=== PATIENT | female | born 1950 | race Caucasian/White ===

== ENCOUNTER 2020-09-29 17:53 | Outpatient (REF) | payer MEDICARE, SELFPAY ==
--- NOTE | ~2020-09-29 | MR_ITS ---
EXAMINATION: MR LUMBAR SPINE WITHOUT CONTRAST CLINICAL INFORMATION: Lumbar radiculopathy. Left leg pain. Chronic low back pain. COMPARISON: X-ray from 04/02/2019 TECHNIQUE: MRI of the lumbar spine was obtained using routine sequences without contrast. FINDINGS: VERTEBRAL BODIES AND PARASPINAL STRUCTURES: There is a rightward curvature of the spine centered at the L1-L2 level and a moderate leftward lumbar curvature at L3-L4. Exuberant left lateral endplate edema and moderate disc space narrowing evident at the L1-L2 level. There are no compression fractures. There is moderate disc space narrowing with a mild retrosubluxation at the L2-L3 level. Mild anterior subluxations evident at the L4-L5 and L5-S1 levels. The paraspinal soft tissues appear normal. The imaged bony pelvis is unremarkable. CONUS MEDULLARIS AND CAUDA EQUINA: Normal, terminating at the level of L1. No lower cord signal abnormality is seen. The cauda equina nerve roots are normal. SPINAL LEVELS: L1-L2: Moderate loss of disc height with significant endplate edema lateralized to the left side. Diffuse disc bulge and endplate spurring without central canal stenosis. Moderate left foraminal narrowing. L2-L3: Retrosubluxation and significant loss of disc height with a diffuse disc bulge and mild facet arthropathy. No central canal stenosis. Mild foraminal encroachment. L3-L4: Moderate hypertrophic facet arthropathy and mild disc bulge with a shallow left lateral annular fissure. Moderate right foraminal encroachment and mild left foraminal narrowing. No central canal stenosis. L4-L5: Diffuse disc bulge and moderate facet arthropathy with mild anterior subluxation. Bulging disc and osseous spurring with mild left and moderate right foraminal encroachment. L5-S1: Anterior subluxation and unroofing of the disc with mioyvsve-dn-mprcap facet arthropathy. No central canal stenosis or foraminal narrowing. MR/MR lumbar spine wo con IMPRESSION: Moderate sigmoidal-shaped curvature of the lumbar spine. Significant endplate edema lateralized to the left side at the L1-L2 level where there is moderate left foraminal narrowing due to spondylosis. No focal disc protrusions. [id number] degenerative changes, as described, with subluxations. Significant loss of disc height with a generalized disc bulge at the L2-L3 level. Moderate right foraminal narrowing at L3-L4 and at L4-L5 with exuberant facet arthropathy.
== END 2020-09-29 17:54 | disposition home or self-care (01) ==
LOC: HO.MRI 17:53
PROVIDERS: Visit Provider Internal Medicine
DX: M54.16 Radiculopathy, lumbar region (principal)
CPT/HCPCS: 72148

== ENCOUNTER 2020-10-31 21:18 | Emergency (ER) | payer MEDICARE, SELFPAY ==
--- NOTE | ~2020-10-31 | XR_ITS ---
EXAMINATION: XR WRIST, LEFT CLINICAL INFORMATION: Wrist pain COMPARISON: None TECHNIQUE: PA, lateral, and oblique views of the left wrist. FINDINGS: Soft tissue swelling about the wrist. Acute deformity with mild impaction of the metaphysis with the fracture line extending to the articular surface without incongruence. Distal ulnar and carpal bones appear intact. Degeneration the first carpometacarpal articulation. No additional findings. XR/XR wrist LT 2V IMPRESSION: Acute intra-articular fracture with mild impaction of the distal radius.
[2020-10-31 21:38] VITALS: BP 188/103; PULSE 96; RESP 18; TEMP 37.2; O2SAT 98; BMI 26.2
[2020-11-01 01:14] VITALS: BP 186/94; PULSE 78; RESP 16; TEMP 36.3; O2SAT 97
--- NOTE | 2020-11-01 01:19 | ED_ITS ---
HPI - Extremity Injury (Upper) General Chief Complaint: Fall Stated Complaint: FAll @ 8:00pm Time Seen by Provider: 11/01/20 01:18 Source: patient Mode of arrival: ambulatory History of Present Illness HPI narrative: 70-year-old female who suffered a mechanical fall and caught herself her left hand and developed pain and swelling at the wrist area shortly thereafter and denies any numbness/tingling into the fingers. Related Data Allergies Allergy/AdvReac Type Severity Reaction Status Date / Time acetaminophen [From PERCOCET] Allergy Intermediate HALLUCINATI Unverified 02/26/20 14:49 ONS oxycodone [From PERCOCET] Allergy Intermediate HALLUCINATI Unverified 02/26/20 14:49 ONS Sulfa (Sulfonamide Allergy Unknown leg px rash Verified 04/01/14 00:00 Antibiotics) Review of Systems Review of Systems: Pertinent positives and negatives as stated in HPI and 10 point review of systems is otherwise negative. [facility] Past Medical History Source: nursing notes reviewed Medical History Arthritis Sciatic leg pain Social History Social History Alcohol intake: never Smoking Status: Never smoker Use of substances other than those prescribed or required for medical reasons: No Advance Directives: No Advance Directives Information Provided: No Physical Exam Vital Signs: Vital Signs: Last Vital Signs Temp 97.4 F 11/01/20 01:14 Pulse 78 11/01/20 01:14 Resp 16 11/01/20 01:14 BP 186/94 H 11/01/20 01:14 Pulse Ox 97 11/01/20 01:14 Body Mass Index 26.2 VITAL SIGNS: Reviewed. GENERAL: Well developed, well nourished, in no acute distress. HEAD: Normocephalic/atraumatic, EYES: PERRLA, EOMI EARS: Ext canals without abnormality NOSE: Nares patent bilateral OROPHARYNX: no oral lesions noted, posterior pharynx clear NECK: Supple, no adenopathy LUNGS: Normal breath sounds. No adventitious sounds or accessory muscle use. SpO2<97> CARDIOVASCULAR: Regular rate and rhythm without noted murmurs ABDOMEN: Soft, non-tender, non-distended with bowel sounds. LUE: Mild deformity noted at the left wrist, palpable radial/ulnar pulses, capillary refill less than 3 seconds, sensation intact Course Course Course Narrative: 70-year-old female with history and clinical presentation consistent with mechanical fall resulting in suspected fracture which was supported by x-ray showing distal intra-articular fracture with mild impaction the distal radius. Patient will receive combination analgesics and be placed in a sugar-tong splint with instructions to follow-up with orthopedics Sunday. Discharge Plan Discharge Clinical Impression: Distal radius fracture, left Patient Disposition: Home, Self-Care Instructions: Arm Fracture in Adults (ED), Splint Care (ED) Additional Instructions: 1. Tylenol 1000 mg, orally, every 6 hours as needed for pain control. Do not exceed 4000 mg within 24 hours. 2. Ibuprofen 400 mg, orally with milk or food, every 6 hours as needed for pain control. 3. Apply ice for 10-15 minutes, 3 to 4 times a day. Keep extremity elevated when possible. 4. Please follow-up with orthopedic service, the referrals provided below. Call the office 1st thing Sunday. Return to the emergency room for any acute worsening of your symptoms. Referrals: Trent Littlejohn MD, DO [Primary Care Provider] - 2 days (Re-evaluation for left radius fracture)
[2020-11-01] MEDS: Ibuprofen 400 MG TABLET PO (01:24)
[2020-11-01] MEDS: Acetaminophen 325 MG TABLET 975 MG PO (01:24)
--- NOTE | 2020-11-01 01:48 | PC.NURSE ---
SUGAR TONG SPLINT APPLIED TO PATIENTS L ARM.
== END 2020-11-01 02:17 | disposition home or self-care (01) ==
PROVIDERS: Emergency Provider Student in an Organized Health Care Education/Training Program; PCP Internal Medicine
DX: S52.572A Other intraarticular fracture of lower end of left radius, initial encounter for closed fracture (principal); W01.0XXA Fall on same level from slipping, tripping and stumbling without subsequent striking against object, initial encounter; M54.32 Sciatica, left side; Y93.9 Activity, unspecified; Y92.039 Unspecified place in apartment as the place of occurrence of the external cause; Y99.9 Unspecified external cause status
CPT/HCPCS: 29125; 73100; 99283; 99284

== ENCOUNTER 2020-11-02 09:54 | Outpatient (REF) | payer MEDICARE, SELFPAY ==
--- NOTE | ~2020-11-02 | XR_ITS ---
EXAMINATION: XR WRIST, LEFT CLINICAL INFORMATION: Pain. COMPARISON: None TECHNIQUE: PA, lateral, and oblique views of the left wrist. FINDINGS: There is loss of 1st carpometacarpal joint space with mild periarticular spurring. There is subtle lucency traversing the distal radial articular surface with small bony protuberance dorsally suspicious for a fracture. There is mild soft tissue swelling and likely joint effusion. XR/XR wrist LT min 3V IMPRESSION: Findings most suspicious of distal radial fracture with intra-articular extension and soft tissue swelling. There are arthritic changes 1st carpometacarpal joint space.
== END 2020-11-02 09:55 | disposition home or self-care (01) ==
LOC: HO.HOSX 09:54
PROVIDERS: Visit Provider Physician Assistant
DX: S52.502A Unspecified fracture of the lower end of left radius, initial encounter for closed fracture (principal)
CPT/HCPCS: 25600; 29085; 73110; 99202

== ENCOUNTER 2020-11-09 07:20 | Outpatient (REF) | payer MEDICARE, SELFPAY ==
--- NOTE | ~2020-11-09 | XR_ITS ---
EXAMINATION: XR WRIST, LEFT CLINICAL INFORMATION: Fracture left wrist. Follow-up COMPARISON: Left wrist 11/02/2020 TECHNIQUE: PA, lateral, and oblique views of the left wrist. FINDINGS: Again visualized is a intra-articular fracture left distal radius and mild step-off of the volar aspect of the distal radial cortex. Visualized ulna and the carpal bones is normal. There is mild loss of radial carpal joint space. There is mild soft tissue swelling. XR/XR wrist LT min 3V IMPRESSION: Stable distal radial fracture with intra-articular extension. No change in the soft tissue swelling.
== END 2020-11-09 07:21 | disposition home or self-care (01) ==
LOC: HO.HOSX 07:20
PROVIDERS: Visit Provider Physician Assistant
DX: S52.502A Unspecified fracture of the lower end of left radius, initial encounter for closed fracture (principal); X58.XXXA Exposure to other specified factors, initial encounter; Y93.9 Activity, unspecified; Y92.9 Unspecified place or not applicable; Y99.9 Unspecified external cause status
CPT/HCPCS: 29075; 73110; 99212

== ENCOUNTER 2020-12-07 15:21 | Outpatient (REF) | payer MEDICARE, SELFPAY ==
--- NOTE | ~2020-12-07 | XR_ITS ---
EXAMINATION: XR WRIST, LEFT CLINICAL INFORMATION: Fracture follow-up COMPARISON: 11/09/2020 TECHNIQUE: PA, lateral, and oblique views of the left wrist. FINDINGS: Alignment of the distal radius fracture appears similar with minimal offset along the articular surface. There is some sclerosis/callus formation along the fracture lines. Severe 1st CMC joint osteoarthritis. XR/XR wrist LT min 3V IMPRESSION: Stable alignment with incomplete healing of the distal radius fracture.
== END 2020-12-07 15:22 | disposition home or self-care (01) ==
LOC: HO.HOSX 15:21
PROVIDERS: Visit Provider Physician Assistant
DX: S52.502A Unspecified fracture of the lower end of left radius, initial encounter for closed fracture (principal)
CPT/HCPCS: 73110; 99212

== ENCOUNTER 2020-12-28 11:40 | Outpatient (REF) | payer MEDICARE, SELFPAY ==
--- NOTE | ~2020-12-28 | XR_ITS ---
EXAMINATION: XR WRIST, LEFT CLINICAL INFORMATION: Left wrist fracture. COMPARISON: 12/07/2020 and studies dating back to 10/31/2020. TECHNIQUE: PA, lateral, and oblique views of the left wrist. FINDINGS: There is continued healing of distal radial intra-articular comminuted fracture with fracture line not as well seen and with sclerosis being present with what appears be some degree of bony union. There is neutral angulation of the radiocarpal joint. There is significant degenerative change of the 1st carpometacarpal joint. There is a bony density seen at the base of the 1st metacarpal and adjacent to the trapezium which may be related to previous trauma. XR/XR wrist LT min 3V IMPRESSION: No significant change in alignment of the left wrist. Healing intra-articular fracture distal left radius with what appears to be some degree of bony union.
== END 2020-12-28 11:41 | disposition home or self-care (01) ==
LOC: HO.HOSX 11:40
PROVIDERS: Visit Provider Physician Assistant
DX: S52.502D Unspecified fracture of the lower end of left radius, subsequent encounter for closed fracture with routine healing (principal)
CPT/HCPCS: 73110; 99212

== ENCOUNTER 2021-08-15 07:41 | Day surgery (SDC) | payer MEDICARE, SELFPAY ==
[2021-08-08 16:18] VITALS: BMI 25.8
--- NOTE | 2021-08-12 14:27 | MHC.SHP ---
Pre-Procedural Eval Section A Date of Service: 08/12/21 The patient is an INPATIENT: No Changes since office visit: No Cold of Flu in the past 2 weeks, No New Medical Problems, No Changes in Medication and No Patient answered all questions The History & Physical has been completed within 30 days and I have reviewed it.: Yes Section B Chief Complaint: cataract right eye Allergies: Allergies Allergy/AdvReac Type Severity Reaction Status Date / Time Sulfa (Sulfonamide Allergy Unknown leg rash Verified 08/08/21 16:16 Antibiotics) Plan Diagnosis/Plan: Unchanged I have reviewed the history and physical and performed a pertinent physical examination on my patient. No changes have occurred unless specified.
[2021-08-15 08:34] VITALS: BP 164/85; PULSE 84; RESP 16; TEMP 36.1; O2SAT 97
[2021-08-15] MEDS: Lactated Ringers 500 ML 50 ML IVCONT (08:40)
[2021-08-15] MEDS: Tetracaine HCl/PF 0.5% Oph Sol 4 ML DROPS 1 DROP EYE-RIGHT (08:41)
[2021-08-15] MEDS: Tropicamide 1 % Ophth Sol 3 ML BTL 1 DROP EYE-RIGHT ×3 (08:43→08:51)
[2021-08-15] MEDS: Phenylephrine HCL 2.5% Oph SoL 2 ML BOTTLE 1 DROP EYE-RIGHT ×3 (08:45→08:53)
--- NOTE | 2021-08-15 09:05 | HO.ANESPROP2 ---
HPI - Anesthesia Eval Consult details Narrative: Right eye Cataract PMFSH Active Problems Active Problems: All Active Problems (Updated 08/08/21 @ 16:27 by Taylor Tellez RN) Wrist pain (Acute) Fracture of distal end of left radius (Acute) Past Medical History Medical History (Updated 08/08/21 @ 16:27 by Taylor Tellez, RN) Arthritis Back pain Degenerative disc disease, lumbar HTN (hypertension) Mild acid reflux Sciatic leg pain Family History Family history of problems with anesthesia: No Surgical History Surgical History (Updated 08/08/21 @ 16:16 by Taylor Tellez RN) History of thyroglossal duct cyst removal Hx of colonoscopy History of Problems with Anesthesia: No Social History Social History (Updated 12/28/20 @ 14:37 by Ant Ozuna) Are you a primary residential caregiver to a significant other at home: No Do you presently have visiting nurse or other home services: No Alcohol intake: never Patient Tobacco Use Status: Never used Tobacco Second Hand Smoke Exposure: No Use of substances other than those prescribed or required for medical reasons: No Have you been hit, kicked, punched, or otherwise hurt by someone within the past year? If so, by whom?: No Are you DNR?: No Advance Directives: No Advance Directives Information Provided: No Advance Directives on File: No Recently lost weight without trying: No Eating poorly because of decreased appetite: No Nutrition Risks: No Nutritional Risk Current occupational status: retired Current occupation: right handed. Meds Allergies Allergy/AdvReac Type Severity Reaction Status Date / Time Sulfa (Sulfonamide Allergy Unknown leg rash Verified 08/08/21 16:16 Antibiotics) Active Medications: Current Medications Lactated Ringer's (Lr) 500 mls @ 50 mls/hr IVCONT .Q10H BRIAN Last Admin: 08/15/21 08:40 Dose: 50 mls/hr Documented by: Povidone Iodine (Povidone Iodine 5 % Ophth Soln 30 Ml Bottle) 1 appl EYE-RIGHT PREOP PRN PRN Reason: Pre-Op Surgical Implant Prophy Home Medications Medication Instructions Recorded Confirmed Last Taken Type amlodipine 5 mg tablet 5 mg PO DAILY 11/02/20 08/08/21 08/15/21 History cholecalciferol (vitamin D3) 25 25 mcg PO DAILY 08/08/21 08/08/21 Unknown History mcg (1,000 unit) capsule (Vitamin D3) Exam Exam Date and Time: August 15, 2021 09 Height,Weight and Vital Signs: Height 4 ft 11.5 in Weight 58.967 kg Last Vital Signs Temp 96.9 F 08/15/21 08:34 Pulse 84 08/15/21 08:34 Resp 16 08/15/21 08:34 BP 164/85 H 08/15/21 08:34 Pulse Ox 97 08/15/21 08:34 Airway Mallampati Class: II TM Dist: >3cm Neck ROM: Full Loose/Missing/Broken Teeth: No Heart: rrr+s1s2 Lungs: cta b/l Assessment and Plan Assessment Anesthesia Assessment: Anesthesia Plan Discussed and Chart Reviewed Final Anesthetic Review Family History of Problems with Anesthesia: No History of Problems with Anesthesia: No NPO: Yes ASA Class: II Final Preanesthetic Review: No Changes in Pt Med Stat, Meds/Allgs Chart Reviewed, Consent Obtained/Reviewed and Anes Risks/Benef Reviewed Patient Risk: Intermediate Procedure Risk: Low Assessment/Block/Sedation in SS: Assess/Block/Sedation-SS Anesthetic Plan Anesthetic Plan: MAC: and Agree w/ Assess. and Plan Disposition: Standard PACU
--- NOTE | 2021-08-15 09:49 | HO.PNOPHT ---
Ophthalmology Procedure Procedure Date of Service: 08/15/21 Ophthalmology Viscoelastic: Yumiko Westont Dual Pack Pro Ophthalmology Lenses: TECIGNACIO [id number] (24) Procedure Notes: PREOPERATIVE DIAGNOSIS: Decreased visual acuity right eye secondary to cataract POSTOPERATIVE DIAGNOSIS: Same PROCEDURE: Right cataract extraction with intraocular lens insertion SURGEON: Santhosh Mann M.D. ANESTHESIA: Topical/MAC ESTIMATED BLOOD LOSS: None COMPLICATIONS: None After obtaining informed consent, the patient was brought to the operating room suite and placed in the supine position. After adequate sedation per anesthesia, topical drops of Tetracaine were given to the right eye. The eye was then prepped and draped in the usual sterile fashion. The operating room microscope was then positioned over the operative eye and a lid speculum placed. A paracentesis was created. Viscoelastic was then instilled into the anterior chamber. A three plane incision was then created temporally, utilizing a 2.85 mm keratome. Capsulotomy forceps were then utilized to create a circular tear capsulotomy. Hydrodissection and hydrodelineation were carried out until adequate mobilization of the nucleus occurred. Phacoemulsification was then utilized to remove the dense central nucleus followed by removal of the cortical material utilizing the automated aspiration irrigation unit. Viscoelastic was instilled into the posterior capsular bag followed by placement of a posterior chamber intraocular lens without difficulty. The residual Viscoelastic was then removed utilizing the automated IA machine. The wound was checked and found to be watertight. The patient tolerated the procedure well and the lid speculum was removed. Intracameral injection of Vigamox 0.1 mL followed by a subtenon injection of Kenalog-40 0.2 mL were administered. The patient will be seen in the a.m.
[2021-08-15 10:21] VITALS: BP 128/76; PULSE 84; RESP 18; TEMP 36.9; O2SAT 96
== END 2021-08-15 10:25 | disposition home or self-care (01) ==
PROVIDERS: PCP Internal Medicine; Visit Provider Ophthalmology
PROC: (CPT 66985; principal; 2021-08-15 09:30)
DX: H25.11 Age-related nuclear cataract, right eye (principal); H54.7 Unspecified visual loss; Z83.511 Family history of glaucoma; I10 Essential (primary) hypertension; Z79.899 Other long term (current) drug therapy; Z88.2 Allergy status to sulfonamides; Z88.8 Allergy status to other drugs, medicaments and biological substances
CPT/HCPCS: 66984; J2250; J3010; J3300; V2632

== ENCOUNTER 2021-08-29 08:20 | Day surgery (SDC) | payer MEDICARE, SELFPAY ==
[2021-08-08 16:27] VITALS: BMI 25.8
--- NOTE | 2021-08-26 09:34 | HO.ANESPROP2 ---
Documented by User: Joselin Awad NP 08/26/21 09:46 HPI - Anesthesia Eval Consult details Narrative: 71yo F for Left Cataract Extraction IOL Insertion PCP cleared Right eye 08/15/21 with MAC: Fent 50, Midaz 1 PMFSH Active Problems Active Problems: All Active Problems (Updated 08/08/21 @ 16:27 by Taylor Tellez, RN) Wrist pain (Acute) Fracture of distal end of left radius (Acute) Past Medical History Medical History (Updated 08/08/21 @ 16:27 by Taylor Tellez, RN) Arthritis Back pain Degenerative disc disease, lumbar HTN (hypertension) Mild acid reflux Sciatic leg pain Family History Family history of problems with anesthesia: No Surgical History Surgical History (Updated 08/08/21 @ 16:16 by Taylor Tellez, DELFINO) History of thyroglossal duct cyst removal Hx of colonoscopy History of Problems with Anesthesia: No Social History Social History (Updated 12/28/20 @ 14:37 by Ant Ozuna) Are you a primary career and transition teacher to a significant other at home: No Do you presently have visiting nurse or other home services: No Alcohol intake: never Patient Tobacco Use Status: Never used Tobacco Second Hand Smoke Exposure: No Use of substances other than those prescribed or required for medical reasons: No Have you been hit, kicked, punched, or otherwise hurt by someone within the past year? If so, by whom?: No Are you DNR?: No Advance Directives: No Advance Directives Information Provided: No Advance Directives on File: No Recently lost weight without trying: No Eating poorly because of decreased appetite: No Nutrition Risks: No Nutritional Risk Patient : No Current occupational status: retired Current occupation: right handed. Meds Allergies Allergy/AdvReac Type Severity Reaction Status Date / Time Sulfa (Sulfonamide Allergy Unknown leg rash Verified 08/08/21 16:16 Antibiotics) Home Medications Medication Instructions Recorded Confirmed Last Taken Type amlodipine 5 mg tablet 5 mg PO DAILY 11/02/20 08/08/21 08/15/21 History cholecalciferol (vitamin D3) 25 25 mcg PO DAILY 08/08/21 08/08/21 Unknown History mcg (1,000 unit) capsule (Vitamin D3) Exam Exam Date and Time: August 26, 2021 0934 Height,Weight and Vital Signs: Height 4 ft 11.5 in Weight 58.967 kg Assessment and Plan Assessment Anesthesia Assessment: Chart Reviewed Final Anesthetic Review Family History of Problems with Anesthesia: No History of Problems with Anesthesia: No Documented by User: Graham Ritter MD 08/29/21 08:54 [facility] Past Medical History Medical History (Updated 08/08/21 @ 16:27 by Taylor Tellez, RN) Arthritis Back pain Degenerative disc disease, lumbar HTN (hypertension) Mild acid reflux Sciatic leg pain Surgical History Surgical History (Updated 08/08/21 @ 16:16 by Taylor Tellez, RN) History of thyroglossal duct cyst removal Hx of colonoscopy Social History Social History (Updated 12/28/20 @ 14:37 by Ant Ozuna) Are you a primary career and transition teacher to a significant other at home: No Do you presently have visiting nurse or other home services: No Alcohol intake: never Patient Tobacco Use Status: Never used Tobacco Second Hand Smoke Exposure: No Use of substances other than those prescribed or required for medical reasons: No Have you been hit, kicked, punched, or otherwise hurt by someone within the past year? If so, by whom?: No Are you DNR?: No Advance Directives: No Advance Directives Information Provided: No Advance Directives on File: No Recently lost weight without trying: No Eating poorly because of decreased appetite: No Nutrition Risks: No Nutritional Risk Patient : No Current occupational status: retired Current occupation: right handed. Meds Allergies Allergy/AdvReac Type Severity Reaction Status Date / Time Sulfa (Sulfonamide Allergy Unknown leg rash Verified 08/08/21 16:16 Antibiotics) Home Medications Medication Instructions Recorded Confirmed Last Taken Type amlodipine 5 mg tablet 5 mg PO DAILY 11/02/20 08/08/21 08/15/21 History cholecalciferol (vitamin D3) 25 25 mcg PO DAILY 08/08/21 08/08/21 Unknown History mcg (1,000 unit) capsule (Vitamin D3) Exam Airway Mallampati Class: II TM Dist: >3cm Neck ROM: Full Loose/Missing/Broken Teeth: No Heart: rrr+s1s2 Lungs: cta b/l Assessment and Plan Final Anesthetic Review NPO: Yes ASA Class: II Final Preanesthetic Review: No Changes in Pt Med Stat, Meds/Allgs Chart Reviewed, Consent Obtained/Reviewed and Anes Risks/Benef Reviewed Patient Risk: Low Procedure Risk: Low Assessment/Block/Sedation in SS: Assess/Block/Sedation-SS Anesthetic Plan Anesthetic Plan: MAC: and Agree w/ Assess. and Plan Disposition: Standard PACU
--- NOTE | 2021-08-26 13:48 | MHC.SHP ---
Pre-Procedural Eval Section A Date of Service: 08/26/21 The patient is an INPATIENT: No Changes since office visit: No Cold of Flu in the past 2 weeks, No New Medical Problems, No Changes in Medication and No Patient answered all questions The History & Physical has been completed within 30 days and I have reviewed it.: Yes Section B Chief Complaint: cataract left eye Allergies: Allergies Allergy/AdvReac Type Severity Reaction Status Date / Time Sulfa (Sulfonamide Allergy Unknown leg rash Verified 08/08/21 16:16 Antibiotics) Plan Diagnosis/Plan: Unchanged I have reviewed the history and physical and performed a pertinent physical examination on my patient. No changes have occurred unless specified.
[2021-08-29 09:32] VITALS: BP 178/87; PULSE 84; RESP 16; TEMP 35.9; O2SAT 98
[2021-08-29] MEDS: Tetracaine HCl/PF 0.5% Oph Sol 4 ML DROPS 1 DROP EYE-LEFT (09:38)
[2021-08-29] MEDS: Tropicamide 1 % Ophth Sol 3 ML BTL 1 DROP EYE-LEFT ×3 (09:40→09:49)
[2021-08-29] MEDS: Phenylephrine HCL 2.5% Oph SoL 2 ML BOTTLE 1 DROP EYE-LEFT ×3 (09:44→09:51)
[2021-08-29] MEDS: Lactated Ringers 500 ML 50 ML IV (09:46)
--- NOTE | 2021-08-29 10:29 | HO.PNOPHT ---
Ophthalmology Procedure Procedure Date of Service: 08/29/21 Ophthalmology Viscoelastic: [employer] Duet Dual Pack Pro Ophthalmology Lenses: TECIGNACIO [id number] (23) Procedure Notes: PREOPERATIVE DIAGNOSIS: Decreased visual acuity left eye secondary to cataract POSTOPERATIVE DIAGNOSIS: Same PROCEDURE: Left cataract extraction with intraocular lens insertion SURGEON: Santhosh Mann M.D. ANESTHESIA: Topical/MAC ESTIMATED BLOOD LOSS: None COMPLICATIONS: None After obtaining informed consent, the patient was brought to the operation room suite and placed in the supine position. After adequate sedation per anesthesia, topical drops of Tetracaine were given to the left eye. The eye was then prepped and draped in the usual sterile fashion. The operating room microscope was then positioned over the operative eye and a lid speculum placed. A paracentesis was created. Viscoelastic was then instilled into the anterior chamber. A three plane incision was then created temporally, utilizing a 2.85 mm keratome. Capsulotomy forceps were then utilized to create a circular tear capsulotomy. Hydrodissection and hydrodelineation were carried out until adequate mobilization of the nucleus occurred. Phacoemulsification was then utilized to remove the dense central nucleus followed by removal of the cortical material utilizing the automated aspiration irrigation unit. Viscoat elastic was instilled into the posterior capsular bag followed by placement of a posterior chamber intraocular lens without difficulty. The residual Viscoat elastic was then removed utilizing the automated IA machine. The wound was check and found to be watertight. The patient tolerated the procedure well and the lid speculum was removed. Intracameral injection of Vigamox 0.1 mL followed by a subtenon injection of Kenalog-40 0.2 mL were administered. The patient will be seen in the a.m.
[2021-08-29 10:55] VITALS: BP 140/85; PULSE 86; RESP 18; TEMP 36.6; O2SAT 96
[2021-08-29] MEDS: Ondansetron ODT 4 MG TAB.RAPDIS TRANSLINGU (12:04)
== END 2021-08-29 11:05 | disposition home or self-care (01) ==
PROVIDERS: PCP Internal Medicine; Visit Provider Ophthalmology
PROC: (CPT 66985; principal; 2021-08-29 10:50)
DX: H25.12 Age-related nuclear cataract, left eye (principal); H54.7 Unspecified visual loss; Z83.511 Family history of glaucoma; I10 Essential (primary) hypertension; M54.16 Radiculopathy, lumbar region; Z79.899 Other long term (current) drug therapy; Z88.2 Allergy status to sulfonamides; Z88.8 Allergy status to other drugs, medicaments and biological substances
CPT/HCPCS: 66984; J2250; J3010; J3300; V2632

== ENCOUNTER 2021-10-27 11:41 | Outpatient (REF) | payer MEDICARE, SELFPAY ==
--- NOTE | ~2021-10-27 | MM_ITS ---
EXAMINATION: MM SCREENING DIGITAL BREAST TOMOSYNTHESIS, BILATERAL CLINICAL INFORMATION: Screening. Asymptomatic. The lifetime risk of breast cancer based on the Tyrer-Cuzick Model is 3%. COMPARISON: Mammography: 10/17/2018, 07/31/2016, 05/10/2015 TECHNIQUE: Digital breast tomosynthesis is performed in both the craniocaudal and mediolateral oblique views along with computer-aided detection (CAD). Synthesized 2D images are generated from the tomosynthesis. FINDINGS: The breasts are heterogeneously dense, which may obscure small masses (ACR BI-RADS breast composition Category c). There are no significant masses, abnormal calcifications, or other abnormalities. Parenchymal pattern is similar to prior exams. No developing density. No significant changes. The axilla and skin contours are unremarkable. MM/MM tomosynthesis screening BI IMPRESSION: No mammographic evidence of malignancy. ASSESSMENT: BI-RADS 1: Negative RECOMMENDATION: Routine annual mammography screening. This patient's information was entered into a reminder system with a target due date for their next mammogram.
== END 2021-10-27 11:42 | disposition home or self-care (01) ==
LOC: HO.MAMMO 11:41
PROVIDERS: PCP Internal Medicine; Visit Provider Internal Medicine
DX: Z12.31 Encounter for screening mammogram for malignant neoplasm of breast (principal)
CPT/HCPCS: 77063; 77067

== ENCOUNTER 2022-01-18 09:14 | Outpatient (REF) | payer MEDICARE, SELFPAY ==
[2022-01-18 10:14] LABS: MANUAL DIFF FLAG NO
[2022-01-18 10:44] LABS: Basophils Absolute Auto 0.1 X10*3/uL (0.0-0.2); Basophils Percent Auto 0.9 % (0-2); Eosinophils Absolute Auto 0.4 X10*3/uL (0.0-0.4); Eosinophils Percent Auto 4.6 % (0-4); Hemoglobin 13.3 g/dl (12.0-16.0); Imm Gran Abs Auto 0.01 X10*3/uL (0.00-0.03); Imm Gran Pct Auto 0.1 % (0.0-0.4); Lymphocytes Absolute Auto 3.2 X10*3/uL (1.2-4.9); Lymphocytes Percent Auto 41.9 % (20-40); Mean Corpuscular HGB Conc 32.4 g/dl (31.0-35.0); Mean Corpuscular Volume 86.3 fL (80.0-98.0); Mean Platelet Volume 8.9 fL (9.4-12.3); Monocytes Absolute Auto 0.5 X10*3/uL (0.1-1.2); Neutrophils Absolute Auto 3.5 x10*3/uL (2.0-8.3); Neutrophils Percent Auto 45.5 % (45-73); Platelet Count 329 X10*3/uL (160-400); Red Blood Count 4.75 X10*6/uL (4.20-5.50); Red Cell Distribution Width 13.6 % (11.0-16.0); White Blood Count 7.6 X10*3/uL (4.8-10.8)
[2022-01-18 11:15] LABS: Alanine Aminotransferase 15 U/L (0-31); Albumin Level 4.6 g/dL (3.5-5.0); Alkaline Phosphatase 92 U/L (39-117); Anion Gap 17 (12-20); Aspartate Amino Transferase 16 U/L (5-31); Bilirubin Total 0.5 mg/dL (0.0-1.0); Blood Urea Nitrogen 10 mg/dL (9-16); Calcium 9.4 mg/dL (8.4-10.2); Chloride 102 mmol/L (96-108); Cholesterol 254 mg/dL; Estimated Glomerular Filt Rate > 60; Glucose Fasting 94 mg/dL (60-99); HDL Cholesterol 62 mg/dL; LDL Cholesterol Calculated 161 mg/dl; Potassium 4.6 mmol/L (3.3-5.1); Sodium 141 mmol/L (135-145); Total Protein 7.7 g/dL (6.5-8.0); Triglycerides 159 mg/dL
[2022-01-18 11:20] LABS: Carbon Dioxide 27 mmol/L (22-29)
[2022-01-18 11:33] LABS: Erythrocyte Sedimentation Rate 13 MM/HR (0-20)
[2022-01-18 11:38] LABS: Thyroid Stimulating Hormone 4.53 uIU/mL (0.32-4.0)
== END 2022-01-18 09:15 | disposition home or self-care (01) ==
LOC: HO.LAB 09:14
PROVIDERS: PCP Internal Medicine; Visit Provider Internal Medicine
DX: R11.0 Nausea (principal)
CPT/HCPCS: 36415; 80053; 80061; 84443; 85025; 85652; 86140

== ENCOUNTER 2022-03-23 08:27 | Outpatient (REF) | payer MEDICARE, SELFPAY ==
[2022-03-23 10:57] LABS: MANUAL DIFF FLAG NO
[2022-03-23 11:09] LABS: Basophils Absolute Auto 0.1 X10*3/uL (0.0-0.2); Basophils Percent Auto 0.7 % (0-2); Eosinophils Absolute Auto 0.4 X10*3/uL (0.0-0.4); Eosinophils Percent Auto 4.9 % (0-4); Hematocrit 38.6 % (37.0-47.0); Hemoglobin 12.6 g/dl (12.0-16.0); Imm Gran Abs Auto 0.01 X10*3/uL (0.00-0.03); Imm Gran Pct Auto 0.1 % (0.0-0.4); Lymphocytes Absolute Auto 3.2 X10*3/uL (1.2-4.9); Lymphocytes Percent Auto 44.3 % (20-40); Mean Corpuscular HGB Conc 32.6 g/dl (31.0-35.0); Mean Corpuscular Hemoglobin 28.3 pg (27.0-33.0); Mean Corpuscular Volume 86.7 fL (80.0-98.0); Mean Platelet Volume 8.9 fL (9.4-12.3); Monocytes Absolute Auto 0.5 X10*3/uL (0.1-1.2); Monocytes Percent Auto 7.2 % (2-11); Neutrophils Absolute Auto 3.1 x10*3/uL (2.0-8.3); Neutrophils Percent Auto 42.8 % (45-73); Platelet Count 317 X10*3/uL (160-400); Red Blood Count 4.45 X10*6/uL (4.20-5.50); White Blood Count 7.1 X10*3/uL (4.8-10.8)
[2022-03-23 12:01] LABS: Thyroid Stimulating Hormone 4.24 uIU/mL (0.32-4.0)
[2022-03-23 12:04] LABS: Alanine Aminotransferase 11 U/L (0-31); Albumin Level 4.5 g/dL (3.5-5.0); Alkaline Phosphatase 87 U/L (39-117); Anion Gap 15 (12-20); Aspartate Amino Transferase 18 U/L (5-31); Bilirubin Total 0.4 mg/dL (0.0-1.0); Blood Urea Nitrogen 13 mg/dL (9-16); C Reactive Protein 0.35 mg/dL (< or = 0.50); Calcium 8.9 mg/dL (8.4-10.2); Carbon Dioxide 25 mmol/L (22-29); Chloride 103 mmol/L (96-108); Cholesterol 239 mg/dL; Estimated Glomerular Filt Rate > 60; Glucose Fasting 97 mg/dL (60-99); HDL Cholesterol 53 mg/dL; LDL Cholesterol Calculated 133 mg/dl; Sodium 139 mmol/L (135-145); Total Protein 7.4 g/dL (6.5-8.0); Triglycerides 267 mg/dL
[2022-03-23 12:07] LABS: Erythrocyte Sedimentation Rate 13 MM/HR (0-20)
== END 2022-03-23 08:28 | disposition home or self-care (01) ==
LOC: HO.HMGCLDS 08:27
PROVIDERS: PCP Internal Medicine; Visit Provider Internal Medicine
DX: R11.0 Nausea (principal); E78.00 Pure hypercholesterolemia, unspecified
CPT/HCPCS: 36415; 80053; 80061; 84443; 85025; 85652; 86140

== ENCOUNTER 2022-05-23 14:54 | Outpatient (REF) | payer MEDICARE, SELFPAY ==
--- NOTE | ~2022-05-23 | XR_ITS ---
EXAMINATION: XR CHEST CLINICAL INFORMATION: Shortness of breath COMPARISON: Chest x-ray 09/19/2012 TECHNIQUE: 2 views of the chest were obtained. FINDINGS: Minimal linear subsegmental atelectasis versus scarring in the left lower lung. The lungs are otherwise clear. No airspace consolidation, pleural effusion, or pneumothorax. The cardiomediastinal silhouette is within normal limits. No acute osseous injury. Mild multilevel degenerative disc disease in the thoracic spine. Dextroconvex curvature of the lower thoracic and upper lumbar spine. XR/XR chest 2V IMPRESSION: No acute pulmonary process.
[2022-05-23 16:35] LABS: Basophils Absolute Auto 0.1 X10*3/uL (0.0-0.2); Basophils Percent Auto 0.6 % (0-2); Eosinophils Absolute Auto 0.3 X10*3/uL (0.0-0.4); Eosinophils Percent Auto 2.5 % (0-4); Hematocrit 39.3 % (37.0-47.0); Hemoglobin 12.5 g/dl (12.0-16.0); Imm Gran Abs Auto 0.04 X10*3/uL (0.00-0.03); Imm Gran Pct Auto 0.4 % (0.0-0.4); Lymphocytes Absolute Auto 5.1 X10*3/uL (1.2-4.9); Lymphocytes Percent Auto 44.4 % (20-40); MANUAL DIFF FLAG SCAN; Mean Corpuscular HGB Conc 31.8 g/dl (31.0-35.0); Mean Corpuscular Hemoglobin 27.7 pg (27.0-33.0); Mean Corpuscular Volume 86.9 fL (80.0-98.0); Monocytes Absolute Auto 0.6 X10*3/uL (0.1-1.2); Monocytes Percent Auto 5.6 % (2-11); Neutrophils Absolute Auto 5.3 x10*3/uL (2.0-8.3); Neutrophils Percent Auto 46.5 % (45-73); Platelet Count 401 X10*3/uL (160-400); Red Blood Count 4.52 X10*6/uL (4.20-5.50); Red Cell Distribution Width 13.7 % (11.0-16.0); SCAN SMEAR FLAG 1; White Blood Count 11.4 X10*3/uL (4.8-10.8)
[2022-05-23 16:53] LABS: SLIDE REVIEW VERIFIED
[2022-05-23 16:54] LABS: Alanine Aminotransferase 10 U/L (0-31); Albumin Level 4.6 g/dL (3.5-5.0); Alkaline Phosphatase 100 U/L (39-117); Anion Gap 13 (12-20); Aspartate Amino Transferase 17 U/L (5-31); Bilirubin Total 0.2 mg/dL (0.0-1.0); Blood Urea Nitrogen 12 mg/dL (9-16); C Reactive Protein 0.25 mg/dL (< or = 0.50); Calcium 9.3 mg/dL (8.4-10.2); Carbon Dioxide 26 mmol/L (22-29); Chloride 103 mmol/L (96-108); Estimated Glomerular Filt Rate > 60; Glucose Random 99 mg/dL (60-115); Potassium 3.9 mmol/L (3.3-5.1); Sodium 138 mmol/L (135-145); Total Protein 7.6 g/dL (6.5-8.0)
== END 2022-05-23 14:55 | disposition home or self-care (01) ==
LOC: HO.HMGCX 14:54
PROVIDERS: PCP Internal Medicine; Visit Provider Internal Medicine
DX: R06.02 Shortness of breath (principal)
CPT/HCPCS: 36415; 71046; 80053; 85025; 86140

== ENCOUNTER 2022-10-04 07:59 | Outpatient (REF) | payer MEDICARE, SELFPAY ==
[2022-10-04 11:07] LABS: MANUAL DIFF FLAG NO
[2022-10-04 11:14] LABS: Basophils Absolute Auto 0.1 X10*3/uL (0.0-0.2); Basophils Percent Auto 0.9 % (0-2); Eosinophils Absolute Auto 0.2 X10*3/uL (0.0-0.4); Eosinophils Percent Auto 2.5 % (0-4); Hematocrit 39.4 % (37.0-47.0); Hemoglobin 12.6 g/dl (12.0-16.0); Imm Gran Abs Auto 0.02 X10*3/uL (0.00-0.03); Imm Gran Pct Auto 0.2 % (0.0-0.4); Lymphocytes Absolute Auto 3.7 X10*3/uL (1.2-4.9); Lymphocytes Percent Auto 46.2 % (20-40); Mean Corpuscular Hemoglobin 27.7 pg (27.0-33.0); Mean Corpuscular Volume 86.6 fL (80.0-98.0); Monocytes Absolute Auto 0.6 X10*3/uL (0.1-1.2); Monocytes Percent Auto 7.1 % (2-11); Neutrophils Absolute Auto 3.5 x10*3/uL (2.0-8.3); Neutrophils Percent Auto 43.1 % (45-73); Platelet Count 302 X10*3/uL (160-400); Red Blood Count 4.55 X10*6/uL (4.20-5.50); Red Cell Distribution Width 13.7 % (11.0-16.0); White Blood Count 8.1 X10*3/uL (4.8-10.8)
[2022-10-04 11:45] LABS: Thyroid Stimulating Hormone 7.12 uIU/mL (0.32-4.0)
[2022-10-04 11:49] LABS: Alanine Aminotransferase 14 U/L (0-31); Albumin Level 4.4 g/dL (3.5-5.0); Alkaline Phosphatase 86 U/L (39-117); Anion Gap 14 (12-20); Aspartate Amino Transferase 21 U/L (5-31); Bilirubin Total 0.6 mg/dL (0.0-1.0); Blood Urea Nitrogen 13 mg/dL (9-16); Carbon Dioxide 27 mmol/L (22-29); Chloride 103 mmol/L (96-108); Cholesterol 251 mg/dL; Estimated Glomerular Filt Rate > 60; Glucose Fasting 93 mg/dL (60-99); HDL Cholesterol 59 mg/dL; LDL Cholesterol Calculated 160 mg/dl; Potassium 3.7 mmol/L (3.3-5.1); Rheumatoid Factor < 13.0 IU/mL (<15.0); Sodium 140 mmol/L (135-145); Total Protein 7.3 g/dL (6.5-8.0); Triglycerides 164 mg/dL
[2022-10-04 12:06] LABS: Erythrocyte Sedimentation Rate 12 MM/HR (0-20)
== END 2022-10-04 08:00 | disposition home or self-care (01) ==
LOC: HO.HMGCLDS 07:59
PROVIDERS: PCP Internal Medicine; Visit Provider Internal Medicine
DX: K21.9 Gastro-esophageal reflux disease without esophagitis (principal); I10 Essential (primary) hypertension; F41.9 Anxiety disorder, unspecified; E78.00 Pure hypercholesterolemia, unspecified
CPT/HCPCS: 36415; 80053; 80061; 84443; 85025; 85652; 86140; 86431

== ENCOUNTER 2022-10-26 05:42 | Day surgery (SDC) | payer MEDICARE, SELFPAY ==
--- NOTE | 2022-10-25 11:53 | P.CONAN_ITS ---
HPI - Anesthesia Eval Consult details Narrative: 72yo F for Upper Endoscopy PMFSH Active Problems Active Problems: All Active Problems (Updated 08/08/21 @ 16:27 by Taylor Tellez RN) Wrist pain (Acute) Fracture of distal end of left radius (Acute) Past Medical History Medical History Arthritis Back pain Degenerative disc disease, lumbar HTN (hypertension) Mild acid reflux Sciatic leg pain Family History Family history of problems with anesthesia: No Surgical History Surgical History History of thyroglossal duct cyst removal Hx of colonoscopy History of Problems with Anesthesia: No Social History Social History (Updated 12/28/20 @ 14:37 by Ant Ozuna) Are you a primary career based intervention coordinator to a significant other at home: No Do you presently have visiting nurse or other home services: No Alcohol intake: never Patient Tobacco Use Status: Never used Tobacco Second Hand Smoke Exposure: No Use of substances other than those prescribed or required for medical reasons: No Are you DNR?: No Advance Directives: No Advance Directives Information Provided: Yes Recently lost weight without trying: No Nutrition Risks: No Nutritional Risk Current occupational status: retired Current occupation: right handed. Meds Allergies Allergy/AdvReac Type Severity Reaction Status Date / Time Sulfa (Sulfonamide Allergy Unknown leg rash Verified 08/29/21 09:31 Antibiotics) Home Medications Medication Instructions Recorded Confirmed Last Taken Type amlodipine 5 mg tablet 5 mg PO DAILY 11/02/20 10/26/22 10/26/22 History cholecalciferol (vitamin D3) 25 25 mcg PO DAILY 08/08/21 10/26/22 Unknown History mcg (1,000 unit) capsule (Vitamin D3) omeprazole 20 mg capsule,delayed 20 mg PO QAM 10/25/22 10/26/22 Unknown History release Exam Exam Date and Time: October 25, 2022 1153 Pertinent Lab Results Pertinent Lab Results: Laboratory Tests 10/04/22 10/04/22 08:10 08:10 WBC 8.1 Hgb 12.6 Hct 39.4 Plt Count 302 Sodium 140 Potassium 3.7 Chloride 103 Carbon Dioxide 27 BUN 13 Creatinine 0.63 Assessment and Plan Assessment Anesthesia Assessment: Chart Reviewed Final Anesthetic Review Family History of Problems with Anesthesia: No History of Problems with Anesthesia: No
[2022-10-26 06:43] VITALS: BMI 27.6
[2022-10-26 06:50] VITALS: BP 178/86; PULSE 83; RESP 16; TEMP 36.5; O2SAT 98
[2022-10-26] MEDS: Lactated Ringers 1,000 ML 100 ML IVCONT (07:07)
--- NOTE | 2022-10-26 07:22 | P.CONAN_ITS ---
FORMERLY [facility], [facility] Active Problems Active Problems: All Active Problems (Updated 08/08/21 @ 16:27 by Taylor Tellez, DELFINO) Wrist pain (Acute) Fracture of distal end of left radius (Acute) Past Medical History Medical History Arthritis Back pain Degenerative disc disease, lumbar HTN (hypertension) Mild acid reflux Sciatic leg pain Family History Family history of problems with anesthesia: No Surgical History Surgical History History of thyroglossal duct cyst removal Hx of colonoscopy History of Problems with Anesthesia: No Social History Social History (Updated 12/28/20 @ 14:37 by Ant Ozuna) Are you a primary healthcare administration intern to a significant other at home: No Do you presently have visiting nurse or other home services: No Alcohol intake: never Patient Tobacco Use Status: Never used Tobacco Second Hand Smoke Exposure: No Use of substances other than those prescribed or required for medical reasons: No Are you DNR?: No Advance Directives: No Advance Directives Information Provided: Yes Recently lost weight without trying: No Nutrition Risks: No Nutritional Risk Current occupational status: retired Current occupation: right handed. Meds Allergies Allergy/AdvReac Type Severity Reaction Status Date / Time Sulfa (Sulfonamide Allergy Unknown leg rash Verified 08/29/21 09:31 Antibiotics) Active Medications: Current Medications Lactated Ringer's (Lr) 1,000 mls @ 100 mls/hr IVCONT .Q10H BRIAN Last Admin: 10/26/22 07:07 Dose: 100 mls/hr Home Medications Medication Instructions Recorded Confirmed Last Taken Type amlodipine 5 mg tablet 5 mg PO DAILY 11/02/20 10/26/22 10/26/22 History cholecalciferol (vitamin D3) 25 25 mcg PO DAILY 08/08/21 10/26/22 Unknown History mcg (1,000 unit) capsule (Vitamin D3) omeprazole 20 mg capsule,delayed 20 mg PO QAM 10/25/22 10/26/22 Unknown History release Exam Exam Date and Time: October 26, 2022 0722 Height,Weight and Vital Signs: Height 4 ft 10 in Weight 59.874 kg Last Vital Signs Temp 97.7 F 10/26/22 06:50 Pulse 83 05/18/23 06:50 Resp 16 10/26/22 06:50 BP 178/86 H 10/26/22 06:50 Pulse Ox 98 10/26/22 06:50 O2 Del Method Room Air 10/26/22 06:50 Airway Mallampati Class: III TM Dist: >3cm Neck ROM: Full Loose/Missing/Broken Teeth: No Heart: rrr Lungs: clear Assessment and Plan Final Anesthetic Review Family History of Problems with Anesthesia: No History of Problems with Anesthesia: No NPO: Yes ASA Class: II Final Preanesthetic Review: No Changes in Pt Med Stat, Meds/Allgs Chart Reviewed, Consent Obtained/Reviewed and Anes Risks/Benef Reviewed Patient Risk: Intermediate Procedure Risk: Low Anesthetic Plan Anesthetic Plan: MAC: Disposition: Standard PACU
[2022-10-26 07:58] VITALS: BP 128/73; PULSE 81; RESP 16; O2SAT 98
--- NOTE | 2022-10-26 08:03 | PM.OP ---
Brief Operative Note Date of Service: 10/26/22 Pre-op diagnosis: GERD Post-op diagnosis: other (Hiatal hernia) Procedure: EGD with biopsies Surgeon: Trent Billingsley Anesthesia: MAC Was an [place]ra Cotta Setter used for this Procedure?: No Estimated blood loss (mL): 2.0 Pathology: other (A. EG Junction at 35cm) Condition: stable Disposition: PACU
[2022-10-26 08:13] VITALS: BP 131/83; PULSE 79; RESP 16; O2SAT 98
--- NOTE | 2022-10-26 08:41 | OP_ITS ---
DATE OF SERVICE: 10/26/2022 SURGEON: Trent Billingsley MD INDICATIONS: The patient presents for evaluation of gastroesophageal reflux. Full consent was obtained from her for this, including risks of bleeding and perforation. PREOPERATIVE DIAGNOSIS: Gastroesophageal reflux. POSTOPERATIVE DIAGNOSIS: PROCEDURE PERFORMED: Esophagogastroduodenoscopy with biopsies. ESTIMATED BLOOD LOSS: COMPLICATIONS: ANESTHESIA: Monitored anesthesia care. ASSISTANTS: SPECIMENS: POSTOPERATIVE DIAGNOSES: Gastroesophageal reflux, hiatal hernia. DESCRIPTION OF PROCEDURE: The patient was placed in the left lateral decubitus position. The Olympus video gastroscope was passed in the posterior oropharynx and upper esophagus under direct vision. The scope was passed slowly to the distal esophagus. The gastroesophageal junction appeared at 35 cm. There was very minimal irregularity consistent with reflux, but no evidence of esophagitis nor any definitive evidence of Thomas's mucosa. The scope entered the stomach. There was a small to moderate-sized hiatal hernia. The hiatal hernia mucosa appeared normal. The scope was advanced to the pylorus and the duodenum was cannulated to the descending portion. The duodenum including the bulb appeared normal without mass or ulceration. The scope was withdrawn back in the stomach. The gastric antrum and body appeared normal with good peristalsis. The scope was retroflexed, visualizing the proximal stomach carefully which appeared normal, without any sign of mass or ulceration. The scope was straightened and withdrawn back into the esophagus. Biopsies were obtained at the EG junction at 35 cm. Proximal to this, the esophageal mucosa appeared normal. The scope was withdrawn from the patient. She tolerated the procedure well and was returned to recovery area in stable condition. IMPRESSION: 1. Hiatal hernia. 2. Gastroesophageal reflux. PLAN: The results of biopsies will be checked. If there are tiny areas of Thomas's mucosa noted without dysplasia we could consider a repeat upper endoscopy in 3 years for further surveillance. She is currently using omeprazole daily and has achieved good relief with that in regard to the reflux symptoms. As such, I did advise her to continue that long-term. At this point, if things are stable, she will see me again on a p.r.n. basis. She would theoretically be due for a followup screening colonoscopy in 2024, and she will otherwise see me on a p.r.n. basis. MD FELIPE Stevens/IDA / [id number] ALIZA
== END 2022-10-26 08:55 | disposition home or self-care (01) ==
PROVIDERS: PCP Internal Medicine; Visit Provider Internal Medicine
PROC: 0DJ08ZZ Inspection of Upper Intestinal Tract, Via Natural or Artificial Opening Endoscopic (ICD-10-PCS; CPT 43235; principal; 2022-10-26 07:30)
DX: K21.9 Gastro-esophageal reflux disease without esophagitis (principal); K44.9 Diaphragmatic hernia without obstruction or gangrene; I10 Essential (primary) hypertension; Z79.899 Other long term (current) drug therapy
CPT/HCPCS: 43239; 88305

== ENCOUNTER 2023-06-19 12:24 | Outpatient (REF) | payer MEDICARE, SELFPAY ==
[2023-06-19 17:11] LABS: MANUAL DIFF FLAG NO
[2023-06-19 17:30] LABS: Basophils Absolute Auto 0.1 X10*3/uL (0.0-0.2); Basophils Percent Auto 0.4 % (0-2); Eosinophils Absolute Auto 0.2 X10*3/uL (0.0-0.4); Eosinophils Percent Auto 1.7 % (0-4); Hematocrit 37.7 % (37.0-47.0); Hemoglobin 11.9 g/dl (12.0-16.0); Imm Gran Abs Auto 0.11 X10*3/uL (0.00-0.03); Imm Gran Pct Auto 0.9 % (0.0-0.4); Lymphocytes Absolute Auto 4.6 X10*3/uL (1.2-4.9); Lymphocytes Percent Auto 38.3 % (20-40); Mean Corpuscular HGB Conc 31.6 g/dl (31.0-35.0); Mean Corpuscular Hemoglobin 27.1 pg (27.0-33.0); Mean Corpuscular Volume 85.9 fL (80.0-98.0); Mean Platelet Volume 8.2 fL (9.4-12.3); Monocytes Absolute Auto 0.7 X10*3/uL (0.1-1.2); Monocytes Percent Auto 5.7 % (2-11); Neutrophils Absolute Auto 6.4 x10*3/uL (2.0-8.3); Platelet Count 552 X10*3/uL (160-400); Red Blood Count 4.39 X10*6/uL (4.20-5.50)
[2023-06-19 17:42] LABS: Alanine Aminotransferase 15 U/L (0-31); Albumin Level 4.1 g/dL (3.5-5.0); Alkaline Phosphatase 79 U/L (39-117); Anion Gap 17 (12-20); Aspartate Amino Transferase 21 U/L (5-31); Bilirubin Total 0.2 mg/dL (0.0-1.0); Blood Urea Nitrogen 10 mg/dL (9-16); C Reactive Protein 1.15 mg/dL (< or = 0.50); Calcium 9.5 mg/dL (8.4-10.2); Carbon Dioxide 25 mmol/L (22-29); Chloride 100 mmol/L (96-108); Estimated Glomerular Filt Rate > 60; Glucose Random 83 mg/dL (60-115); Potassium 4.5 mmol/L (3.3-5.1); Sodium 137 mmol/L (135-145); Total Protein 7.8 g/dL (6.5-8.0)
[2023-06-19 17:59] LABS: Thyroid Stimulating Hormone 4.45 uIU/mL (0.32-4.0)
[2023-06-19 18:19] LABS: Erythrocyte Sedimentation Rate 53 MM/HR (0-20)
== END 2023-06-19 12:25 | disposition home or self-care (01) ==
LOC: HO.HMGCLDS 12:24
PROVIDERS: PCP Internal Medicine; Visit Provider Internal Medicine
DX: G93.39 Other post infection and related fatigue syndromes (principal)
CPT/HCPCS: 36415; 80053; 84443; 85025; 85652; 86140

== ENCOUNTER 2023-07-13 07:59 | Outpatient (REF) | payer MEDICARE, SELFPAY ==
[2023-07-13 11:52] LABS: MANUAL DIFF FLAG NO
[2023-07-13 12:00] LABS: Basophils Absolute Auto 0.1 X10*3/uL (0.0-0.2); Basophils Percent Auto 0.9 % (0-2); Eosinophils Absolute Auto 0.3 X10*3/uL (0.0-0.4); Eosinophils Percent Auto 4.2 % (0-4); Hematocrit 39.2 % (37.0-47.0); Hemoglobin 12.6 g/dl (12.0-16.0); Imm Gran Abs Auto 0.01 X10*3/uL (0.00-0.03); Imm Gran Pct Auto 0.1 % (0.0-0.4); Lymphocytes Absolute Auto 3.8 X10*3/uL (1.2-4.9); Lymphocytes Percent Auto 49.9 % (20-40); Mean Corpuscular HGB Conc 32.1 g/dl (31.0-35.0); Mean Corpuscular Hemoglobin 27.4 pg (27.0-33.0); Mean Corpuscular Volume 85.2 fL (80.0-98.0); Mean Platelet Volume 8.8 fL (9.4-12.3); Monocytes Absolute Auto 0.5 X10*3/uL (0.1-1.2); Monocytes Percent Auto 6.5 % (2-11); Neutrophils Absolute Auto 2.9 x10*3/uL (2.0-8.3); Neutrophils Percent Auto 38.4 % (45-73); Platelet Count 304 X10*3/uL (160-400); Red Cell Distribution Width 14.7 % (11.0-16.0); White Blood Count 7.7 X10*3/uL (4.8-10.8)
[2023-07-13 12:34] LABS: Cholesterol 219 mg/dL (<200); HDL Cholesterol 61 mg/dL (>40); LDL Cholesterol Calculated 122 mg/dL (<100); Triglycerides 181 mg/dL (<150)
[2023-07-13 12:41] LABS: Thyroid Stimulating Hormone 5.89 uIU/mL (0.32-4.0)
== END 2023-07-13 08:00 | disposition home or self-care (01) ==
LOC: HO.HMGCLDS 07:59
PROVIDERS: PCP Internal Medicine; Visit Provider Internal Medicine
DX: K21.9 Gastro-esophageal reflux disease without esophagitis (principal); I10 Essential (primary) hypertension; E78.00 Pure hypercholesterolemia, unspecified; F41.9 Anxiety disorder, unspecified
CPT/HCPCS: 36415; 80061; 84443; 85025

== ENCOUNTER 2024-03-06 08:01 | Outpatient (REF) | payer MEDICARE, SELFPAY ==
[2024-03-06 10:05] LABS: MANUAL DIFF FLAG NO
[2024-03-06 10:11] LABS: Basophils Absolute Auto 0.1 X10*3/uL (0.0-0.2); Basophils Percent Auto 0.7 % (0-2); Eosinophils Absolute Auto 0.2 X10*3/uL (0.0-0.4); Eosinophils Percent Auto 2.8 % (0-4); Hematocrit 38.2 % (37.0-47.0); Hemoglobin 12.5 g/dl (12.0-16.0); Imm Gran Abs Auto 0.02 X10*3/uL (0.00-0.03); Imm Gran Pct Auto 0.2 % (0.0-0.4); Lymphocytes Absolute Auto 3.6 X10*3/uL (1.2-4.9); Lymphocytes Percent Auto 43.4 % (20-40); Mean Corpuscular HGB Conc 32.7 g/dl (31.0-35.0); Mean Corpuscular Hemoglobin 27.8 pg (27.0-33.0); Mean Corpuscular Volume 85.1 fL (80.0-98.0); Mean Platelet Volume 9.2 fL (9.4-12.3); Monocytes Absolute Auto 0.6 X10*3/uL (0.1-1.2); Monocytes Percent Auto 6.9 % (2-11); Neutrophils Absolute Auto 3.8 x10*3/uL (2.0-8.3); Platelet Count 307 X10*3/uL (160-400); Red Blood Count 4.49 X10*6/uL (4.20-5.50); Red Cell Distribution Width 14.5 % (11.0-16.0); White Blood Count 8.2 X10*3/uL (4.8-10.8)
[2024-03-06 10:39] LABS: Alanine Aminotransferase 11 U/L (0-31); Albumin Level 4.3 g/dL (3.5-5.0); Alkaline Phosphatase 88 U/L (39-117); Anion Gap 11 (12-20); Aspartate Amino Transferase 18 U/L (5-31); Bilirubin Total 0.4 mg/dL (0.0-1.0); Blood Urea Nitrogen 11 mg/dL (9-16); Calcium 9.2 mg/dL (8.4-10.2); Carbon Dioxide 27 mmol/L (22-29); Chloride 104 mmol/L (96-108); Cholesterol 214 mg/dL (<200); Estimated Glomerular Filt Rate > 60; Glucose Fasting 94 mg/dL (60-99); HDL Cholesterol 56 mg/dL (>40); LDL Cholesterol Calculated 133 mg/dL (<100); Potassium 3.6 mmol/L (3.3-5.1); Sodium 138 mmol/L (135-145); Total Protein 7.3 g/dL (6.5-8.0); Triglycerides 127 mg/dL (<150)
[2024-03-06 10:40] LABS: Vitamin D 25-OH Total 77.5 ng/mL (>30)
== END 2024-03-06 08:02 | disposition home or self-care (01) ==
LOC: HO.HMGCLDS 08:01
PROVIDERS: PCP Internal Medicine; Visit Provider Internal Medicine
DX: K21.9 Gastro-esophageal reflux disease without esophagitis (principal); I10 Essential (primary) hypertension; F41.9 Anxiety disorder, unspecified
CPT/HCPCS: 36415; 80053; 80061; 82306; 84443; 85025

== ENCOUNTER 2024-03-14 15:00 | Outpatient (REF) | payer MEDICARE, SELFPAY ==
--- NOTE | ~2024-03-14 | MM_ITS ---
EXAMINATION: MM SCREENING DIGITAL BREAST TOMOSYNTHESIS, BILATERAL CLINICAL INFORMATION: Screening. Asymptomatic. COMPARISON: Mammography: Comparison is made with available priors TECHNIQUE: Digital breast mammography with tomosynthesis is performed in both the craniocaudal and mediolateral oblique views along with computer-aided detection (CAD). FINDINGS: The breasts are heterogeneously dense, which may obscure small masses (ACR BI-RADS breast composition Category c). There are no significant masses, abnormal calcifications, or other abnormalities. MM/MM tomosynthesis screening BI IMPRESSION: No mammographic evidence of malignancy. ASSESSMENT: BI-RADS BI-RADS 1 - Negative RECOMMENDATION: Routine annual mammography screening. 1 year F/U This examination should not preclude the clinical evaluation of a suspicious palpable abnormality. This patient's information was entered into a reminder system with a target due date for their next mammogram. Electronically signed by: Christine Vanegas DO 03/26/2024 01:52 PM EDT
== END 2024-03-14 15:01 | disposition home or self-care (01) ==
LOC: HO.MAMMO 15:00
PROVIDERS: PCP Internal Medicine; Visit Provider Internal Medicine
DX: Z12.31 Encounter for screening mammogram for malignant neoplasm of breast (principal)
CPT/HCPCS: 77063; 77067

== ENCOUNTER → 2024-03-14 15:30 | Outpatient (BNV) | payer MEDICARE, SELFPAY | PROVIDERS: PCP Internal Medicine; Visit Provider Internal Medicine | DX: Z12.31 Encounter for screening mammogram for malignant neoplasm of breast (principal) | CPT/HCPCS: 77063; 77067 ==

== ENCOUNTER 2024-07-22 10:24 | Outpatient (AMB) | payer MEDICARE, SELFPAY ==
--- NOTE | 2024-07-22 10:24 | MHC.PC.OV ---
Vital Signs 07/22/24 10:32 Height 4 ft 10.5 in Weight 132 lb BMI 27.1 BP 142/76 H Blood Pressure Location Rt brachial Pulse 71 Pulse Source Pulse Oximeter Temp 97.2 F Pulse Oximetry (%) 98 Intake Visit Reasons: 6 month follow up Intake Note: would like to discuss acid reflux Allergies Sulfa (Sulfonamide Antibiotics) Allergy (Unknown, Verified 07/22/24 11:17) leg rash Medication List - Last Reconciled 07/22/24 by Hudson Lopez MD alum-mag hydroxide-simeth 200-200-20 mg/5 mL (Maalox Advanced) 10 mL PO QID PRN amlodipine 5 mg PO DAILY cholecalciferol (vitamin D3) (Vitamin D3) 25 mcg PO DAILY famotidine 40 mg PO BID HPI 6 month follow up HPI Details 74 yr old female presents to the office to discuss her chronic medical conditions. Patient gives history of persistent GERD. Symptoms started in . Includes belching and burping along with nausea. Sx are worse in the morning. Tried PPI (Nexium and Pantoprazole) but could not tolerate the medications. She was having more nausea with these meds. Was seen by GI MD who did an endoscopy. Results of which are not available. Pt recollects she was diagnosed with hiatal hernia. Reluctant to take many medications. Compliant with her BP med. She records her BP at home and reports her systolic blood pressure is consistently less than or equal to 130. [facility]. [facility] Medical History Degenerative disc disease, lumbar Back pain Mild acid reflux HTN (hypertension) Arthritis Sciatic leg pain Surgical History History of thyroglossal duct cyst removal Hx of colonoscopy Social History Are you a primary director of home care hospice to a significant other at home: No Do you presently have visiting nurse or other home services: No Alcohol intake: never Patient Tobacco Use Status: Never used Tobacco Second Hand Smoke Exposure: No Current occupational status: retired Current occupation: right handed. Physical exam (Primary Care) Vital Signs: Last Vital Signs Temp 97.2 F 07/22/24 10:32 Pulse 71 07/22/24 10:32 BP 142/76 H 07/22/24 10:32 Pulse Ox 98 07/22/24 10:32 Care Plan Goal for BP management: BP is slightly elevated. BMI result Body Mass Index 27.1 Tobacco/Smoking Status: Tobacco use Status Patient Tobacco Use Status Never used Tobacco 07/22/24 10:26 Const General: cooperative and healthy appearing Nutritional Appearance: well nourished Orientation/consciousness: patient oriented x3 Limitations: no limitations HENMT Head: Yes normal to inspection Eyes General: appearance normal, both eyes and all related structures Neck Neck: Yes normal visual inspection Chest Chest palpation & inspection: normal palpation of entire chest wall Resp Effort & Inspection: normal respiratory effort Neuro General: patient oriented x3 Coding Level of Care Code Est Pt Level 4 (68446) Complex EM visit Add On G2211 Diagnoses HTN (hypertension) I10 Mild acid reflux K21.9 Assessment & Plan Assessment & Plan (1) HTN (hypertension): Code(s): I10 - Essential (primary) hypertension Category: Medical Plan: Blood pressure is in range. Continue medications at same dosage. (2) Mild acid reflux: Code(s): K21.9 - Gastro-esophageal reflux disease without esophagitis Category: Medical Plan: H2 nahomy and Maalox suggested. Patient has an upcoming appt with the GI specialist. BW has been ordered. Follow up in three weeks. Orders: Orders Lipid Panel Today I10 - Essential (primary) hypertension, K21.9 - Gastro-esophageal reflux disease without esophagitis Thyroid Stimulating Hormone Today I10 - Essential (primary) hypertension, K21.9 - Gastro-esophageal reflux disease without esophagitis UA and rflx microscopic Today I10 - Essential (primary) hypertension, K21.9 - Gastro-esophageal reflux disease without esophagitis Basic Metabolic Panel Today I10 - Essential (primary) hypertension, K21.9 - Gastro-esophageal reflux disease without esophagitis Complete Blood Count no Diff Today I10 - Essential (primary) hypertension, K21.9 - Gastro-esophageal reflux disease without esophagitis Liver Panel Today I10 - Essential (primary) hypertension, K21.9 - Gastro-esophageal reflux disease without esophagitis Erythrocyte Sedimentation Rate Today I10 - Essential (primary) hypertension, K21.9 - Gastro-esophageal reflux disease without esophagitis Medications: New alum-mag hydroxide-simeth 200-200-20 mg/5 mL (Maalox Advanced) administer between meals and at bedtime 10 mL PO QID PRN 1,500 mL 0RF indigestion famotidine 40 mg PO BID 60 tabs 0RF
[2024-07-22 10:32] VITALS: BP 142/76; PULSE 71; TEMP 36.2; O2SAT 98; BMI 27.1
== END 2024-07-22 11:07 | disposition home or self-care (01) ==
LOC: HO.HMCSH 10:24
PROVIDERS: PCP Internal Medicine; Visit Provider Internal Medicine
DX: I10 Essential (primary) hypertension (principal); K21.9 Gastro-esophageal reflux disease without esophagitis

== ENCOUNTER → 2024-07-22 10:24 | Outpatient (BNVA) | payer MEDICARE, SELFPAY | PROVIDERS: PCP Internal Medicine; Visit Provider Internal Medicine | DX: I10 Essential (primary) hypertension (principal); K21.9 Gastro-esophageal reflux disease without esophagitis | CPT/HCPCS: 99212 ==

== ENCOUNTER 2024-07-25 06:57 | Outpatient (REF) | payer MEDICARE, SELFPAY ==
--- OUTSIDE RECORDS SUMMARY | 2024-07-25 07:00 | XMS_ITS ---
Author Organization Trent Littlejohn DO [facility] Address [address] [place], [place] [id number] Care Team Providers Care Exploitation Analyst Name Role Phone Trent Littlejohn Primary Care Provider REASON FOR VISIT 6 month f/u Encounters Encounter Location Date Provider Diagnosis Trent Littlejohn DO, FACP [address] [place] [id number] 07/22/2024 Trent Littlejohn PLAN OF TREATMENT No Information
--- OUTSIDE RECORDS SUMMARY | 2024-07-25 07:00 | XMS_ITS ---
Author Organization Trent Littlejohn DO, [facility] Address [address], [place] [id number] Care Team Providers Care Correctional Supervisor Lieutenant Name Role Phone AnnettaTrent castaneda Primary Care Provider [phone] REASON FOR VISIT Refills MEDICATIONS Medication SIG (Take, Route, Frequency, Duration) Notes Start Date End Date Status Pantoprazole Sodium 40 MG 1 tablet Orall y Once a day for 30 day(s) 07/17/2023 Active Encounters Encounter Location Date Provider Diagnosis Trent Littlejohn DO, [facility] [address], [place] [id number] 10/16/2023 Trent Littlejohn Gastroesophageal ref lux disease, unspecified whether esophagitis present K21.9 ASSESSMENTS Encounter Date Diagnosis Assessment Notes Treatment Notes Treatment Clinical Notes 10/16/2023 Gastroesophageal ref lux disease, unspecified whether esophagitis present (ICD-10 - K21.9) PLAN OF TREATMENT Medication Medication Name Sig Start Date Stop Date Notes Pantoprazole Sodium 40 MG 1 tablet Orall y Once a day for 30 day(s) 07/17/2023
--- OUTSIDE RECORDS SUMMARY | 2024-07-25 07:00 | XMS_ITS | Patient Health Record ---
Author Organization [facility] Address [address] [place] [address] Care Team Providers Care Matrix Bath Attendant Name Role Phone SEBAS GARSIA Primary Care Provider Trent Gómez [phone] ALLERGIES Allergen (clinical drug ingredient) Drug/Non Drug Allergy documented on EMR Reaction Allergy Type Onset Date Status sulfamethoxazole / trimethoprim Bactrim Unknown Drug Allergy Active REASON FOR REFERRAL No Information MEDICATIONS Medication SIG (Take, Route, Frequency, Duration) Notes Start Date End Date Status tylenol 1 tab Oral for 14 days as needed Active amLODIPine Besylate 5 MG 1 tablet Orally Once a day Active Omeprazole 20 MG 1 capsule 30 minutes before morning meal Orally Once a day for 30 day(s) Active Vitamin D3 1000 UNIT 1 tablet Orally Onc e a day Active IMMUNIZATIONS Vaccine Route Administration Date Status Comme nts Influenza Unknown 02/21/2022 Administered SOCIAL HISTORY Sex Assigned At : Social History Observation Description Sex Assigned At Unknown PROBLEMS Problem Type ICD Code Onset Dates Problem Status W/U Status Risk SNOMED Code Notes Problem Esophageal reflux (K21.9) Active confirmed Esophageal reflux (634436494) Problem Gastroesophageal reflux disease, unspecified whether esophagitis present (K21.9) Active confirmed [id number] PLAN OF TREATMENT Pending Test Test Name Order Date Pathology 10/26/2022 Future Test Test Name Order Date COLONOSCOPY 07/02/2014 UPPER GI ENDOSCOPY 10/04/2022 Next Appt Details Provider Name:Trent Billingsley , 11/12/2024 02:20:00 PM, [address], [address], [place], [address], Insurance Providers Payer Name Payer Address Payer Phone Subscriber Number Group Number Insured Name Patient Relationship to Insured Coverage Start Date Coverage End Date MEDICARE OF [place] [address] [place] [id number] TIANA WARNER Self - patient is the insured [facility] [employer] [address] [place] [address] [phone] [id number] TIANA WARNER Self - patient is the insured MEDICAL (GENERAL) HISTORY Medical History History ICD Code Denies OR,DM,CVA,Lung disease,renal dise ase Negative screening colonosco py in 2001 except for sigmoid diverticulosis and internal hemorrhoids HTN GERD since summer 2021 Negative colonoscopy in 09/2014 Surgical History Surgery Date(Month/Year) Thyroglossal cyst removed
[2024-07-25 10:01] LABS: Hematocrit 39.6 % (37.0-47.0); Hemoglobin 12.7 g/dl (12.0-16.0); Mean Corpuscular HGB Conc 32.1 g/dl (31.0-35.0); Mean Corpuscular Hemoglobin 27.5 pg (27.0-33.0); Mean Corpuscular Volume 85.9 fL (80.0-98.0); Mean Platelet Volume 8.9 fL (9.4-12.3); Platelet Count 318 X10*3/uL (160-400); Red Blood Count 4.61 X10*6/uL (4.20-5.50); White Blood Count 8.1 X10*3/uL (4.8-10.8)
[2024-07-25 10:08] LABS: Appearance Urine Clear; Color Urine Yellow; Glucose Urine UA Negative (Negative); Leukocyte Esterase Urine Large (3+) (Negative); Nitrite Urine Negative (Negative); UMIC TRIGGER UA YES; Urine Blood Trace (Negative); Urine Ketones Negative (Negative); Urine Protein Negative (Neg-Trace)
[2024-07-25 10:14] LABS: Bacteria Urine None Seen (None Seen); Hyaline Casts Urine 0-2 /LPF (0-2)
[2024-07-25 10:35] LABS: Alanine Aminotransferase 11 U/L (0-31); Albumin Level 4.2 g/dL (3.5-5.0); Alkaline Phosphatase 89 U/L (39-117); Anion Gap 12 (12-20); Aspartate Amino Transferase 24 U/L (5-31); Bilirubin Direct 0.1 mg/dL (0.0-0.5); Bilirubin Total 0.4 mg/dL (0.0-1.0); Blood Urea Nitrogen 13 mg/dL (9-16); Calcium 8.9 mg/dL (8.4-10.2); Carbon Dioxide 25 mmol/L (22-29); Chloride 103 mmol/L (96-108); Cholesterol 216 mg/dL (<200); Estimated Glomerular Filt Rate > 60; Glucose Random 87 mg/dL (60-115); HDL Cholesterol 66 mg/dL (>40); LDL Cholesterol Calculated 123 mg/dL (<100); Potassium 3.7 mmol/L (3.3-5.1); Sodium 136 mmol/L (135-145); Thyroid Stimulating Hormone 7.24 uIU/mL (0.32-4.0); Total Protein 7.6 g/dL (6.5-8.0); Triglycerides 135 mg/dL (<150)
[2024-07-25 10:41] LABS: Erythrocyte Sedimentation Rate 13 MM/HR (0-20)
== END 2024-07-25 06:58 | disposition home or self-care (01) ==
LOC: HO.HMGCLDS 06:57
PROVIDERS: PCP Internal Medicine; Visit Provider Internal Medicine
DX: I10 Essential (primary) hypertension (principal); K21.9 Gastro-esophageal reflux disease without esophagitis
CPT/HCPCS: 36415; 80048; 80061; 80076; 81001; 81003; 84443; 85027; 85652

== ENCOUNTER 2024-08-19 13:34 | Outpatient (AMB) | payer MEDICARE, SELFPAY ==
--- NOTE | 2024-08-19 13:35 | MHC.PC.OV ---
Vital Signs 08/19/24 13:36 Height 4 ft 10 in Weight 134 lb BMI 28.0 BP 142/80 H Respiration 14 Pulse 80 Pulse Source Pulse Oximeter Temp 97.7 F Temp Source Temporal Artery Scan Pulse Oximetry (%) 100 Oxygen Delivery Method Room Air Intake Visit Reasons: 4 week follow up Box Inspector Required: No Accompanied by: Self / Same As Patient Allergies Sulfa (Sulfonamide Antibiotics) Allergy (Unknown, Verified 08/19/24 13:40) leg rash Tobacco use date assessed: 08/19/24 Fall risk assessment: No Falls in past year Last assessed Fall Risk: 08/19/24 Dental Screening Dental Screen Date: 08/19/24 Did you have a dental visit in the last 12 months?: Yes Did you have a dental problem in the last 6 months where you did not have access to dental care?: No PFSH Medical History Degenerative disc disease, lumbar Back pain Mild acid reflux HTN (hypertension) Arthritis Sciatic leg pain Surgical History History of thyroglossal duct cyst removal Hx of colonoscopy Family History (Updated 08/19/24 @ 13:43 by TERESE Her) Mother Hypertension Melanoma Social History [facility] Are you a primary pet care associate to a significant other at home: No Do you presently have visiting nurse or other home services: No Alcohol intake: never Patient Tobacco Use Status: Never used Tobacco Second Hand Smoke Exposure: No service: No Current occupational status: retired Current occupation: right handed. Cognitive needs: No Hearing needs: No Vision needs: Yes (reading glasses) Questionnaire PHQ-9 Over the last 2 weeks, how often have you been bothered by any of the following problems? 1. Little interest or pleasure in doing things: not at all 2. Feeling down, depressed, or hopeless: not at all 3. Trouble falling or staying asleep, or sleeping too much: not at all 4. Feeling tired or having little energy: not at all 5. Poor appetite or overeating: not at all 6. Feeling bad about yourself - or that you are a failure or have let yourself or your family down: not at all 7. Trouble concentrating on things, such as reading the newspaper or watching television: not at all 8. Moving or speaking so slowly that other people could have noticed. Or the opposite - being so fidgety or restless that you have been moving around a lot more than usual: not at all 9. Thoughts that you would be better off or of hurting yourself in some way: not at all Total score: 0 Source: Developed by Drs. Trent Canada, Court Roberts, Marcin Soliz and colleagues, with an educational miladis from [employer]. Thrive Questionnaire Date Thrive assessed: 08/19/24 I am a: Patient What is your living situation today?: I have a steady place to live Within the past 12 months, did the food you bought not last and you didn't have the money to get more?: Never true Within the past 12 months, did you worry whether your food would run out before you got money to buy more?: Never true Do you have trouble paying for medicines?: No Do you have trouble getting transportation to medical appointments?: No Do you have trouble paying your heating and electricity bill?: No Do you have trouble taking care of your child, family member or friend?: No Do you have trouble with day-to-day activities such as bathing, preparing meals, shopping, managing finances, etc.?: No Are you currently unemployed and looking for a job?: No Are you interested in more education?: No THRIVE Score: 0 AUDIT C Alcohol Use Questionnaire (AUDIT-C) 1. How often do you have a drink containing alcohol?: Never 3. How often do you have six or more drinks on one occasion?: Never Total Score: 0 HERMILO-7 AMB Questionnaire HERMILO-7 Date HERMILO - 7 assessed: 08/19/24 Feeling nervous, anxious, or on edge: 0 = Not at all Not being able to stop or control worryin = Not at all Worrying too much about different things: 0 = Not at all Trouble relaxin = Not at all Being so restless that it is hard to sit still: 0 = Not at all Becoming easily annoyed or irritable: 0 = Not at all Feeling afraid as if something awful might happen: 0 = Not at all Total HERMILO-7 score (0-4 normal; 5-9 mild; 10-14 moderate; 15-21 severe): 0 Source: Developed by Drs. Trent Canada, Court Roberts, Marcin Soliz and colleagues, with an educational miladis from [employer]. Physical exam (Primary Care) Vital Signs: Last Vital Signs Temp 97.7 F 08/19/24 13:36 Pulse 80 08/19/24 13:36 Resp 14 08/19/24 13:36 BP 142/80 H 08/19/24 13:36 Pulse Ox 100 08/19/24 13:36 Oxygen Delivery Method Room Air 08/19/24 13:36 BMI result Body Mass Index 28.0 Tobacco/Smoking Status: Tobacco use Status Tobacco use date assessed 08/19/24 08/19/24 13:44 Patient Tobacco Use Status Never used Tobacco 08/19/24 13:44 PHQ-9: PHQ-9 Score PHQ-9: Total score 0 08/19/24 13:44 Thrive Assessment: Date of Thrive Assessment Date Thrive assessed 08/19/24 08/19/24 13:44 Coding Level of Care Code Est Pt Level 4 (94019) Complex EM visit Add On G2211 Diagnoses Mild acid reflux K21.9 Hypothyroidism E03.9 Assessment & Plan Assessment & Plan (1) Mild acid reflux: Code(s): K21.9 - Gastro-esophageal reflux disease without esophagitis Category: Medical Plan: Continue current regimen. Has an upcoming appt with GI. (2) Hypothyroidism: Code(s): E03.9 - Hypothyroidism, unspecified Category: Medical Plan: 100 mcg of Synthroid started. Rpt TSH in six weeks. Plan History of Present Illness The patient is a 74-year-old female presenting with primary complaints of gastroesophageal reflux disease and hypothyroidism. GERD has been managed with Famotidine, resulting in improved symptoms, yet the patient reports that complete resolution has not been achieved. She is scheduled for a gastroenterology consultation, presumably to further investigate GERD and consider other diagnostic procedures. The patient's blood work has revealed an elevated TSH level (7.24), indicative of hypothyroidism which aligns with her reports of fatigue. The patient will be initiated on Synthroid to manage her thyroid function, requiring consistent monitoring of hormone levels over the upcoming weeks. Additionally, she presents with hypercholesterolemia, likely secondary to her thyroid dysfunction, though intervention has not been deemed necessary at present. Social History - No new social history was discussed during this visit. Review of Systems - Endocrine: Reports fatigue. - Gastrointestinal: Reports persistent gastroesophageal reflux symptoms. Physical Exam General: Cooperative and healthy appearing Nutritional Appearance: Well nourished Orientation/consciousness: Patient oriented x3 Limitations: No limitations Head: Normal to inspection General: Appearance normal, both eyes and all related structures Neck: Normal visual inspection Chest: Normal palpation of entire chest wall Respiratory: Normal respiratory effort Neurology: Patient oriented x3 Results - Labs: Elevated TSH level at 7.24, indicative of hypothyroidism. Elevated cholesterol levels were noted but not at a threshold for immediate intervention. Plan I will start the patient on Synthroid to address hypothyroidism, ensuring she understands the importance of compliance and timing of the medication. She is to continue her current GERD management with Famotidine, which can be further evaluated during her gastroenterology consultation. Lifestyle interventions are advised for her hypercholesterolemia, as medication is not immediately required but should be reassessed alongside thyroid function. Re-evaluating the TSH level in six weeks will ensure medication efficacy, with cholesterol monitoring aligning with improved thyroid control. Patient was informed and verbally consented to the use of an ambient scribe for clinic note documentation during this visit. Discussion Notes I discussed the nature of hypothyroidism with the patient, emphasizing the necessity of lifelong medication with Synthroid to manage thyroid hormone levels effectively. I instructed her on the importance of taking Synthroid on an empty stomach in the morning for optimal absorption. I addressed her concerns about her elevated cholesterol levels, tying them potentially to hypothyroidism and recommending continued observation without immediate pharmacotherapy. I assured her of the anticipated benefits of therapy and outlined a timeline for additional diagnostic testing and follow-up. I reinforced the significance of discussing GERD management in depth with her telephone information clerk and assured her of access to care should any concerns arise before the next scheduled follow-up. Patient Instructions - Begin taking Synthroid once daily, first thing in the morning, on an empty stomach. - Continue taking Famotidine as prescribed for GERD management. - Schedule follow-up lab work for thyroid function six weeks after starting Synthroid. - Monitor cholesterol levels in conjunction with thyroid function improvement. - Discuss ongoing GERD symptoms and management with your telephone information clerk at your upcoming appointment. - Adhere to lifestyle modifications to manage cholesterol levels effectively. Orders: Orders Thyroid Stimulating Hormone 10/13/24 E03.9 - Hypothyroidism, unspecified, K21.9 - Gastro-esophageal reflux disease without esophagitis Medications: New levothyroxine (Synthroid) 100 mcg PO DAILY 60 tabs 0RF amlodipine 5 mg PO DAILY 90 tabs 1RF Refilled alum-mag hydroxide-simeth 200-200-20 mg/5 mL (Maalox Advanced) administer between meals and at bedtime 10 mL PO QID PRN 1,500 mL 1RF indigestion famotidine 40 mg PO BID 180 tabs 1RF
[2024-08-19 13:36] VITALS: BP 142/80; PULSE 80; RESP 14; TEMP 36.5; O2SAT 100; BMI 28.0
--- OUTSIDE RECORDS SUMMARY | 2024-08-19 16:25 | XMS_ITS | Patient Health Record ---
Author Organization [facility] Address [address] [place] [address] Care Team Providers Care Waiter Waitress Name Role Phone SEBAS GARSIA Primary Care Provider Trent Gómez [phone] Allergies Allergen (clinical drug ingredient) Drug/Non Drug Allergy documented on EMR Reaction Allergy Type Onset Date Status Bactrim Unknown Drug Allergy Active Reason For Referral No Information Medications Medication SIG (Take, Route, Frequency, Duration) Notes Start Date End Date Status tylenol 1 tab Oral for 14 days as needed Active amLODIPine Besylate 5 MG 1 tablet Orally Once a day Active Omeprazole 20 MG 1 capsule 30 minutes before morning meal Orally Once a day for 30 day(s) Active Vitamin D3 1000 UNIT 1 tablet Orally Onc e a day Active Immunizations Vaccine Route Administration Date Status Comme nts Influenza Unknown 02/21/2022 Administered Problems Problem Type SNOMED Code ICD Code Onset Dates Problem Status W/U Status Risk Notes Problem Esophageal reflux (415084296) Esophageal reflux (K21.9) Active confirmed Problem [id number] Gastroesophageal reflux disease, unspecified whether esophagitis present (K21.9) Active confirmed Plan Of Treatment Pending Test Test Name Order Date Pathology 10/26/2022 Future Test Test Name Order Date COLONOSCOPY 07/02/2014 UPPER GI ENDOSCOPY 10/04/2022 Next Appt Details Provider Name:Trent Billingsley , 11/12/2024 02:20:00 PM, [address], [address], [place], [address], Insurance Providers Payer Name Payer Address Payer Phone Subscriber Number Group Number Insured Name Patient Relationship to Insured Coverage Start Date Coverage End Date MEDICARE OF [place] [address] [place] [id number] [phone] [id number] TIANA WARNER Self - patient is the insured [facility] [employer] [address] [place] [address] [id number] WARNER, TIANA Self - patient is the insured Medical (General) History Medical History History ICD Code Denies AL,DM,CVA,Lung disease,renal dise ase Negative screening colonosco py in 2001 except for sigmoid diverticulosis and internal hemorrhoids HTN GERD since summer 2021 Negative colonoscopy in 09/2014 Surgical History Surgery Date(Month/Year) Thyroglossal cyst removed
== END 2024-08-19 14:05 | disposition home or self-care (01) ==
LOC: HO.HMCSH 13:34
PROVIDERS: PCP Internal Medicine; Visit Provider Internal Medicine
DX: K21.9 Gastro-esophageal reflux disease without esophagitis (principal); E03.9 Hypothyroidism, unspecified

== ENCOUNTER → 2024-08-19 13:34 | Outpatient (BNVA) | payer MEDICARE, SELFPAY | PROVIDERS: PCP Internal Medicine; Visit Provider Internal Medicine | DX: K21.9 Gastro-esophageal reflux disease without esophagitis (principal); E03.9 Hypothyroidism, unspecified | CPT/HCPCS: 99212 ==

== ENCOUNTER 2024-10-01 06:43 | Outpatient (REF) | payer MEDICARE, SELFPAY ==
[2024-10-01 11:25] LABS: Thyroid Stimulating Hormone 0.03 uIU/mL (0.32-4.0)
== END 2024-10-01 06:44 | disposition home or self-care (01) ==
LOC: HO.HMGCLDS 06:43
PROVIDERS: PCP Internal Medicine; Visit Provider Internal Medicine
DX: E03.9 Hypothyroidism, unspecified (principal); K21.9 Gastro-esophageal reflux disease without esophagitis
CPT/HCPCS: 36415; 84443

== ENCOUNTER 2024-11-24 07:08 | Outpatient (REF) | payer MEDICARE, SELFPAY ==
[2024-11-24 11:04] LABS: Thyroid Stimulating Hormone 0.03 uIU/mL (0.32-4.0)
== END 2024-11-24 07:09 | disposition home or self-care (01) ==
LOC: HO.HMGCLDS 07:08
PROVIDERS: PCP Internal Medicine; Visit Provider Internal Medicine
DX: E03.9 Hypothyroidism, unspecified (principal)
CPT/HCPCS: 36415; 84443

== ENCOUNTER 2025-02-02 10:03 | Day surgery (SDC) | payer MEDICARE, SELFPAY ==
[2025-01-29 15:54] VITALS: BMI 24.3
--- NOTE | 2025-01-30 09:39 | HO.ANESPROP2 ---
Documented by User: Jennifer [place] NP 01/30/25 09:39 HPI - Anesthesia Eval Consult details Narrative: 74 yr old female for colonoscopy GERD: manages with famotidine PMFSH Active Problems Active Problems: All Active Problems Hypothyroidism (Acute) Mild acid reflux (Acute) HTN (hypertension) (Acute) Fracture of distal end of left radius (Acute) Wrist pain (Acute) Past Medical History Medical History Hypothyroidism Degenerative disc disease, lumbar Back pain Mild acid reflux HTN (hypertension) Arthritis Sciatic leg pain Family History Family History (Updated 08/19/24 @ 13:43 by TERESE Her) Mother Hypertension Melanoma Family history of problems with anesthesia: No Surgical History Surgical History History of thyroglossal duct cyst removal Hx of colonoscopy (~09/09/14) History of Problems with Anesthesia: No Social History Social History [facility] Are you a primary attending ambulatory care to a significant other at home: No Do you presently have visiting nurse or other home services: No Alcohol intake: never Patient Tobacco Use Status: Never used Tobacco Second Hand Smoke Exposure: No Have you been hit, kicked, punched, or otherwise hurt by someone within the past year? If so, by whom?: No Are you DNR?: No Advance Directives: No Advance Directives Information Provided: Yes Poor oral hygiene: No service: No Current occupational status: retired Current occupation: right handed. Cognitive needs: No Hearing needs: No Vision needs: Yes (reading glasses) Meds Allergies Allergy/AdvReac Type Severity Reaction Status Date / Time Sulfa (Sulfonamide Allergy Unknown leg rash Verified 02/02/25 11:00 Antibiotics) Home Medications ?Medication ?Instructions ?Recorded ?Confirmed ?Last Taken ?Type cholecalciferol (vitamin D3) 25 25 mcg PO DAILY 08/08/21 01/29/25 Unknown History mcg (1,000 unit) capsule (Vitamin D3) Exam Height,Weight and Vital Signs: Height 5 ft 1 in Weight 58.332 kg Assessment and Plan Final Anesthetic Review Family History of Problems with Anesthesia: No History of Problems with Anesthesia: No Documented by User: Rahul Wheeler MD 02/02/25 11:41 PMFSH Past Medical History Medical History Hypothyroidism Degenerative disc disease, lumbar Back pain Mild acid reflux HTN (hypertension) Arthritis Sciatic leg pain Family History Family History (Updated 08/19/24 @ 13:43 by TERESE Her) Mother Hypertension Melanoma Surgical History Surgical History History of thyroglossal duct cyst removal Hx of colonoscopy (~09/09/14) Social History Social History [facility] Are you a primary attending ambulatory care to a significant other at home: No Do you presently have visiting nurse or other home services: No Alcohol intake: never Patient Tobacco Use Status: Never used Tobacco Second Hand Smoke Exposure: No Have you been hit, kicked, punched, or otherwise hurt by someone within the past year? If so, by whom?: No Are you DNR?: No Advance Directives: No Advance Directives Information Provided: Yes Poor oral hygiene: No service: No Current occupational status: retired Current occupation: right handed. Cognitive needs: No Hearing needs: No Vision needs: Yes (reading glasses) Meds Allergies Allergy/AdvReac Type Severity Reaction Status Date / Time Sulfa (Sulfonamide Allergy Unknown leg rash Verified 02/02/25 11:00 Antibiotics) Home Medications ?Medication ?Instructions ?Recorded ?Confirmed ?Last Taken ?Type cholecalciferol (vitamin D3) 25 25 mcg PO DAILY 08/08/21 01/29/25 Unknown History mcg (1,000 unit) capsule (Vitamin D3) Assessment and Plan Assessment Anesthesia Assessment: Anesthesia Plan Discussed and Chart Reviewed Final Anesthetic Review NPO: Yes ASA Class: III Final Preanesthetic Review: No Changes in Pt Med Stat, Meds/Allgs Chart Reviewed, Consent Obtained/Reviewed and Anes Risks/Benef Reviewed Patient Risk: Low Procedure Risk: Low Anesthetic Plan Anesthetic Plan: MAC: Disposition: Standard PACU
[2025-02-02 10:23] VITALS: BMI 23.8
[2025-02-02] MEDS: Lactated Ringers 1,000 ML 100 ML IVCONT (10:39)
[2025-02-02 10:57] VITALS: BP 145/82; PULSE 84; RESP 18; TEMP 36.7; O2SAT 98
[2025-02-02 12:45] VITALS: BP 128/66; PULSE 76; RESP 15; TEMP 36.3
--- NOTE | 2025-02-02 12:47 | P.BOP_ITS ---
Brief Operative Note Date of Service: 02/02/25 Pre-op diagnosis: Screening Post-op diagnosis: other (Diverticulosis) Procedure: Colonoscopy to the cecum and TI Surgeon: Trent Billingsley MD Anesthesia: MAC Was an Implementation Advisor used for this Procedure?: No Estimated blood loss (mL): 0 Pathology: none sent Condition: stable Disposition: PACU
[2025-02-02 13:00] VITALS: BP 137/71; PULSE 72; RESP 16; TEMP 36.4; O2SAT 99
--- NOTE | 2025-02-02 23:04 | OP_ITS ---
DATE OF SERVICE: 02/02/2025 SURGEON: Trent Billingsley MD INDICATIONS: The patient presents for evaluation of colorectal cancer screening. Full consent has been obtained from her for this, including risks of bleeding and perforation. PREOPERATIVE DIAGNOSIS: Colorectal cancer screening. POSTOPERATIVE DIAGNOSIS: PROCEDURE PERFORMED: Colonoscopy to the cecum and terminal ileum. ESTIMATED BLOOD LOSS: COMPLICATIONS: ANESTHESIA: Medication used, monitored anesthesia care. ASSISTANTS: SPECIMENS: POSTOPERATIVE DIAGNOSES: Colorectal cancer screening, sigmoid diverticulosis, and internal hemorrhoids. DESCRIPTION OF PROCEDURE: The patient was placed in the left lateral decubitus position. The digital rectal exam revealed no abnormalities. The Olympus video pediatric colonoscope was entered into the rectum and advanced to the cecum. Advancement to the cecum was difficult and required abdominal wall pressure. Once in the cecum, I did identify normal-appearing cecal pouch with appendiceal orifice and a normal-appearing ileocecal valve. The terminal ileum was cannulated and appeared normal. The scope withdrawn back in the colon. The entire cecum and ileocecal valve appeared normal, including the appendiceal orifice. The scope was then slowly withdrawn assessing all mucosal surfaces carefully. Preparation was excellent. I did not visualize any sign of polyps, colitis, nor angiodysplasia. There was a moderate amount of sigmoid diverticulosis. There was some spasm in this area as well. The area was carefully inspected with insufflation of air and as best I could tell there were no polyps or any other mucosal abnormalities. In the rectum, scope was retroflexed visualizing internal hemorrhoids, but no other pathology. The rectal mucosa appeared normal. The scope was straightened and withdrawn from the patient. She tolerated the procedure well and was returned to recovery area in stable condition. IMPRESSION: 1. Diverticulosis. 2. Internal hemorrhoids. PLAN: Given today's negative exam and her age, I do not think she would need any further screening colonoscopies. She will otherwise see me on a p.r.n. basis. Of note, she did recently switch from an H2 nahomy to omeprazole and has been having much better relief of her reflux. I did advise her to continue that. MD FELIPE Stevens/JONIL / [id number] ALIZA
== END 2025-02-02 13:26 | disposition home or self-care (01) ==
PROVIDERS: PCP Internal Medicine; Visit Provider Internal Medicine
PROC: 0DJD8ZZ Inspection of Lower Intestinal Tract, Via Natural or Artificial Opening Endoscopic (ICD-10-PCS; CPT 45378; principal; 2025-02-02 11:40)
DX: Z12.11 Encounter for screening for malignant neoplasm of colon (principal); K57.30 Diverticulosis of large intestine without perforation or abscess without bleeding; K64.8 Other hemorrhoids; K59.00 Constipation, unspecified; I10 Essential (primary) hypertension; K21.9 Gastro-esophageal reflux disease without esophagitis; K44.9 Diaphragmatic hernia without obstruction or gangrene; E03.9 Hypothyroidism, unspecified; Z79.899 Other long term (current) drug therapy
CPT/HCPCS: G0121; J2003; J2250; J2704

== ENCOUNTER 2025-02-20 06:34 | Outpatient (REF) | payer MEDICARE, SELFPAY ==
[2025-02-20 10:39] LABS: Hematocrit 36.2 % (37.0-47.0); Hemoglobin 12.0 g/dl (12.0-16.0); Mean Corpuscular HGB Conc 33.1 g/dl (31.0-35.0); Mean Corpuscular Hemoglobin 27.5 pg (27.0-33.0); Mean Corpuscular Volume 83.0 fL (80.0-98.0); NRBC Abs Auto 0.000 X10*3/uL (0.0-0.012); NRBC Pct Auto 0.0 /100WBC (0.0-0.2); Platelet Count 331 X10*3/uL (160-400); Red Blood Count 4.36 X10*6/uL (4.20-5.50); White Blood Count 8.1 X10*3/uL (4.8-10.8)
[2025-02-20 10:52] LABS: Appearance Urine Clear; Glucose Urine UA Negative (Negative); PH 7.5 (5.0-9.0); Specific Gravity - Urine 1.010 (1.005-1.025); UMIC TRIGGER UA YES
[2025-02-20 11:09] LABS: Alanine Aminotransferase 12 U/L (0-31); Albumin Level 4.4 g/dL (3.5-5.0); Alkaline Phosphatase 97 U/L (39-117); Anion Gap 13 (12-20); Aspartate Amino Transferase 23 U/L (5-31); Blood Urea Nitrogen 9 mg/dL (9-16); Calcium 8.8 mg/dL (8.4-10.2); Carbon Dioxide 26 mmol/L (22-29); Chloride 106 mmol/L (96-108); Cholesterol 212 mg/dL (<200); Estimated Glomerular Filt Rate > 60; HDL Cholesterol 61 mg/dL (>40); Potassium 3.7 mmol/L (3.3-5.1); Sodium 141 mmol/L (135-145); Total Protein 7.1 g/dL (6.5-8.0); Triglycerides 114 mg/dL (<150)
[2025-02-20 11:25] LABS: Thyroid Stimulating Hormone 2.78 uIU/mL (0.32-4.0)
== END 2025-02-20 06:35 | disposition home or self-care (01) ==
LOC: HO.HMGCLDS 06:34
PROVIDERS: PCP Internal Medicine; Visit Provider Internal Medicine
DX: I10 Essential (primary) hypertension (principal)
CPT/HCPCS: 36415; 80048; 80061; 80076; 81001; 84443; 85027

== ENCOUNTER 2025-03-16 09:22 | Outpatient (AMB) | payer MEDICARE, SELFPAY ==
--- NOTE | 2025-03-16 08:37 | A.OFFPC_ITS ---
Vital Signs 03/16/25 09:25 Height 4 ft 10 in Weight 129 lb 4 oz BMI 27.0 BP 168/76 H Blood Pressure Location Lt brachial Position Sitting Respiration 16 Pulse 77 Pulse Source Pulse Oximeter Temp 97 F Temp Source Temporal Artery Scan Pulse Oximetry (%) 100 Oxygen Delivery Method Room Air Intake Visit Reasons: 6 month fu Medical Equipment Technician Required: No Accompanied by: Self / Same As Patient Allergies Sulfa (Sulfonamide Antibiotics) Allergy (Unknown, Verified 03/16/25 10:33) leg rash Medication List - Last Reconciled 03/16/25 by Leonor Noe PA-C alum-mag hydroxide-simeth 200-200-20 mg/5 mL (Maalox Advanced) 10 mL PO QID PRN amlodipine 5 mg PO DAILY cholecalciferol (vitamin D3) (Vitamin D3) 25 mcg PO DAILY levothyroxine 50 mcg PO DAILY omeprazole 20 mg PO QAM Tobacco use date assessed: 03/16/25 Dental Screening Dental Screen Date: 03/16/25 Did you have a dental visit in the last 12 months?: Yes HPI 6 month fu HPI Details The patient is a 74-year-old female presenting with concerns regarding her thyroid medication and associated symptoms. The patient was started on levothyroxine six months ago due to elevated thyroid levels, initially at a dose of 100 mcg, which was later reduced to 50 mcg due to side effects. She reports experiencing hot flashes, cold intolerance, and joint pain since starting the medication, which have persisted despite dosage adjustments. The patient's thyroid levels were noted to be normal last month, but she continues to experience fatigue, cold intolerance, and joint pain. She expresses a preference to discontinue the medication due to these persistent symptoms and concerns about lifelong dependency on thyroid medication. The patient has a history of fluctuating thyroid levels, with previous management involving periodic blood tests and adjustments in medication dosage. She has not undergone a thyroid ultrasound previously, and there is no family history of thyroid cancer, although her mother was on thyroid medication. The patient also reports an increase in blood pressure since starting levothyroxine, despite being on amlodipine, which she has been taking regularly. She does not monitor her blood pressure at home but plans to start doing so. Social History - Family status: The patient's daughter is a herbalist and lives in [place]. [facility] Medical History Hypothyroidism Degenerative disc disease, lumbar Back pain Mild acid reflux HTN (hypertension) Arthritis Sciatic leg pain Surgical History History of thyroglossal duct cyst removal Hx of colonoscopy (~02/02/25) Family History Mother Hypertension Melanoma Social History [facility] Are you a primary care tech to a significant other at home: No Do you presently have visiting nurse or other home services: No Alcohol intake: never Patient Tobacco Use Status: Never used Tobacco Second Hand Smoke Exposure: No service: No Current occupational status: retired Current occupation: right handed. Cognitive needs: No Hearing needs: No Vision needs: Yes (reading glasses) Questionnaire PHQ-9 Over the last 2 weeks, how often have you been bothered by any of the following problems? 1. Little interest or pleasure in doing things: not at all 2. Feeling down, depressed, or hopeless: not at all 3. Trouble falling or staying asleep, or sleeping too much: not at all 4. Feeling tired or having little energy: not at all 5. Poor appetite or overeating: not at all 6. Feeling bad about yourself - or that you are a failure or have let yourself or your family down: not at all 7. Trouble concentrating on things, such as reading the newspaper or watching television: not at all 8. Moving or speaking so slowly that other people could have noticed. Or the opposite - being so fidgety or restless that you have been moving around a lot more than usual: not at all 9. Thoughts that you would be better off or of hurting yourself in some way: not at all Total score: 0 Depression Screening Interpretation: Negative Depression Screening Done: Yes 54362 - PHQ-9 Billing: Yes Source: Developed by Drs. Trent Canada, Court Roberts, Marcin Soliz and colleagues, with an educational miladis from [employer]. Thrive Questionnaire Date Thrive assessed: 03/16/25 I am a: Patient What is your living situation today?: I have a steady place to live Within the past 12 months, did the food you bought not last and you didn't have the money to get more?: Never true Within the past 12 months, did you worry whether your food would run out before you got money to buy more?: Never true Do you have trouble paying for medicines?: No Do you have trouble getting transportation to medical appointments?: No Do you have trouble paying your heating and electricity bill?: No Do you have trouble taking care of your child, family member or friend?: No Do you have trouble with day-to-day activities such as bathing, preparing meals, shopping, managing finances, etc.?: No Are you currently unemployed and looking for a job?: No Are you interested in more education?: No THRIVE Score: 0 AUDIT C Alcohol Use Questionnaire (AUDIT-C) 1. How often do you have a drink containing alcohol?: Monthly or less 2. How many drinks containing alcohol do you have on a typical day when you are drinking?: 1 or 2 3. How often do you have six or more drinks on one occasion?: Never Total Score: 1 Score Reviewed/Action Taken: No HERMILO-7 AMB Questionnaire HERMILO-7 Date HERMILO - 7 assessed: 03/16/25 Feeling nervous, anxious, or on edge: 0 = Not at all Not being able to stop or control worryin = Not at all Worrying too much about different things: 0 = Not at all Trouble relaxin = Not at all Being so restless that it is hard to sit still: 0 = Not at all Becoming easily annoyed or irritable: 0 = Not at all Feeling afraid as if something awful might happen: 0 = Not at all Total HERMILO-7 score (0-4 normal; 5-9 mild; 10-14 moderate; 15-21 severe): 0 Source: Developed by Drs. Trent Cnaada, Court Roberts, Marcin Soliz and colleagues, with an educational miladis from [employer]. HERMILO-7 Assessment Billing HERMILO-7 Assessment Tool: HERMILO-7 Assessment 55559 Review of Systems Const Details: - Endocrine: Reports hot flashes, cold intolerance, and joint pain since starting thyroid medication. - Musculoskeletal: Reports joint pain. - General: Reports fatigue. - Cardiovascular: Reports increased blood pressure since starting thyroid medication. All systems reviewed & are unremarkable except as noted in HPI and below Physical exam (Primary Care) Vital Signs: Last Vital Signs Temp 97 F 03/16/25 09:25 Pulse 77 03/16/25 09:25 Resp 16 03/16/25 09:25 BP 168/76 H 03/16/25 09:25 Pulse Ox 100 03/16/25 09:25 Oxygen Delivery Method Room Air 03/16/25 09:25 Care Plan Goal for BP management: <140/90 patient will monitor her blood p ressure return in 2 weeks for nurse visit and then in 6 weeks for MD/PA visit BMI result Body Mass Index 27.0 BMI Assessment/Plan discussion: High BMI High, discussed plan: lifestyle, weight reduction, dietary, physical activity, alcohol moderation and other Tobacco/Smoking Status: Tobacco use Status Tobacco use date assessed 03/16/25 03/16/25 09:39 Patient Tobacco Use Status Never used Tobacco 03/16/25 08:41 PHQ-9: PHQ-9 Score PHQ-9: Total score 0 03/16/25 09:40 Depression Screening Interpretation: Negative Thrive Assessment: Date of Thrive Assessment Date Thrive assessed 03/16/25 03/16/25 09:39 Const Other: Appearance: Alert. Oriented X3. No acute distress. Head: Normal external exam. Normocephalic. Atraumatic. Eyes: Pupils are equal, round, and reactive to light. Extraocular movements intact. Conjunctiva and sclera normal. Eyelids normal. Throat: Pharynx normal. Uvula midline. Moist mucous membranes. Neck: Normal inspection. Neck supple. Full range of motion. Cardiovascular: Normal heart rate and rhythm. Heart sound normal. No murmurs noted. Pulses normal throughout. Respiratory: No respiratory distress. Painless inspiration. Breath sounds normal. No wheezes/rales/rhonchi noted. Chest nontender. No accessory muscle usage noted or decreased air movement noted. Back: Full range of motion noted. Skin: Skin warm and dry. Normal skin color. Normal skin turgor. No rashe s/lesions/lacerations noted. Extremities: Extremities exhibit normal range of motion. Results Reviewed Results Reviewed: - Labs: Thyroid levels were normal last month. Coding Level of Care Code Est Pt Level 4 (88774) Complex EM visit Add On G2211 Diagnoses Hypothyroidism E03.9 HTN (hypertension) I10 Additional Codes PHQ-9 - 28420 - PHQ-9 Billing: Yes ([id number]) HERMILO-7 Assessment Billing - HERMILO-7 Assessment Tool: HERMILO-7 Assessment 60944 ([id number]) Assessment & Plan Assessment & Plan (1) Hypothyroidism: Code(s): E03.9 - Hypothyroidism, unspecified Category: Medical Plan: The patient is experiencing persistent symptoms of hot flashes, cold intolerance, and joint pain despite adjustments in levothyroxine dosage. A referral to endocrinology has been made for further evaluation, and a thyroid ultrasound is planned to rule out nodules. The patient is advised to reduce the levothyroxine dose to half for a week and then consider discontinuing it, with a follow-up blood test in six weeks to monitor thyroid levels. (2) HTN (hypertension): Code(s): I10 - Essential (primary) hypertension Category: Medical Plan: The patient reports increased blood pressure since starting levothyroxine, despite being on amlodipine. She is advised to monitor her blood pressure at home and return in six weeks for further evaluation. Plan Plan Patient was informed and verbally consented to the use of an ambient scribe for clinic note documentation during this visit. 1. Hypothyroidism The patient is experiencing persistent symptoms of hot flashes, cold intolerance, and joint pain despite adjustments in levothyroxine dosage. A referral to endocrinology has been made for further evaluation, and a thyroid ultrasound is planned to rule out nodules. The patient is advised to reduce the levothyroxine dose to half for a week and then consider discontinuing it, with a follow-up blood test in six weeks to monitor thyroid levels. 2. Hypertension The patient reports increased blood pressure since starting levothyroxine, despite being on amlodipine. She is advised to monitor her blood pressure at home and return in six weeks for further evaluation. I discussed with the patient the potential side effects of levothyroxine and the importance of monitoring thyroid levels. We talked about the possibility of reducing the medication dosage and considering alternative treatments, such as herbal remedies, with her daughter's guidance. I recommended a referral to endocrinology for further evaluation and a thyroid ultrasound to rule out nodules. The patient was advised to monitor her blood pressure at home and return for follow-up in six weeks. Orders: Orders Triiodothyronine T3 Free Today E03.9 - Hypothyroidism, unspecified US thyroid Today E03.9 - Hypothyroidism, unspecified TSH reflex Free T4 Today Z00.00 - Encounter for general adult medical examination without abnormal findings Referrals Endocrinology Referral E03.9 - Hypothyroidism, unspecified Patient Instructions: - Reduce levothyroxine dose to half for one week, then consider discontinuing. - Monitor blood pressure at home regularly. - Follow up with endocrinology and complete thyroid ultrasound as scheduled. - Return for follow-up appointment in six weeks.
[2025-03-16 09:25] VITALS: BP 168/76; PULSE 77; RESP 16; TEMP 36.1; O2SAT 100; BMI 27.0
== END 2025-03-16 10:05 | disposition home or self-care (01) ==
LOC: HO.HMCSH 09:22
PROVIDERS: PCP Physician Assistant Medical; Visit Provider Physician Assistant Medical
DX: E03.9 Hypothyroidism, unspecified (principal); I10 Essential (primary) hypertension

== ENCOUNTER → 2025-03-16 09:22 | Outpatient (BNVA) | payer MEDICARE, SELFPAY | PROVIDERS: PCP Physician Assistant Medical; Visit Provider Physician Assistant Medical | DX: I10 Essential (primary) hypertension (principal); E03.9 Hypothyroidism, unspecified; Z79.899 Other long term (current) drug therapy | CPT/HCPCS: 96127; 99212 ==

== ENCOUNTER 2025-03-20 14:33 | Outpatient (REF) | payer MEDICARE, SELFPAY | END 2025-03-20 14:34 | disposition home or self-care (01) | LOC: HO.MAMMO 14:33 | PROVIDERS: PCP Internal Medicine; Visit Provider Internal Medicine | DX: Z12.31 Encounter for screening mammogram for malignant neoplasm of breast (principal) | CPT/HCPCS: 77063; 77067 ==

== ENCOUNTER → 2025-03-20 15:15 | Outpatient (BNV) | payer MEDICARE, SELFPAY | PROVIDERS: PCP Internal Medicine; Visit Provider Radiology Body Imaging | DX: Z12.31 Encounter for screening mammogram for malignant neoplasm of breast (principal) | CPT/HCPCS: 77063; 77067 ==

== ENCOUNTER 2025-05-04 07:22 | Outpatient (REF) | payer MEDICARE, SELFPAY ==
--- OUTSIDE RECORDS SUMMARY | 2025-05-04 07:26 | XMS_ITS ---
Author Organization Unknown ENCOUNTERS Encounter Performer Location Date Diagnosis Diagnosis Status Outpatient [facility] [address] [place] [address] [id number] STEPHANIA Pre Admit [facility] [address] [place] [address] [id number] Outpatient [facility] [address] [place] [address] [id number] STEPHANIA Pre Admit [facility] [address] [place] [address] [id number] Outpatient [facility] [address] [place] [address] [id number] STEPHANIA Pre Admit [facility] [address] [place] [address] [id number] Outpatient [facility] [address] [place] [address] [id number] STEPHANIA Emergency [facility] [address] [place] [address] [id number] TSEPHANIA *Note: Encounters from your own facility or health system may be excluded. Allergies, Adverse Reactions, Alerts Allergen Type Severity Identification Date acetaminophen drug allergy 3 [id number] Sulfa (Sulfonamide Antibiotics) drug allergy [id number] oxycodone drug allergy 3 [id number] Medications Name Date Quantity Days Supplied GPI Number
[2025-05-04 11:40] LABS: Free T4 (Free Thyroxine) 0.93 ng/dL (0.71-1.85)
== END 2025-05-04 07:23 | disposition home or self-care (01) ==
LOC: HO.HMGCLDS 07:22
PROVIDERS: PCP Internal Medicine; Visit Provider Physician Assistant Medical
DX: Z00.00 Encounter for general adult medical examination without abnormal findings (principal); E03.9 Hypothyroidism, unspecified
CPT/HCPCS: 36415; 84439; 84443; 84481

== ENCOUNTER 2025-05-11 13:45 | Outpatient (AMB) | payer MEDICARE, SELFPAY ==
--- NOTE | 2025-05-11 13:46 | MHC.PC.OV ---
Vital Signs 05/11/25 13:51 05/11/25 16:12 Height 4 ft 10 in Weight 126 lb 0.4 oz BMI 26.3 BP 157/82 H 130/98 H Blood Pressure Location Rt brachial Pulse 75 Pulse Source Pulse Oximeter Temp 97.1 F Pulse Oximetry (%) 99 Intake Visit Reasons: 6 week follow up Intake Note: would like to talk about her thyroid Allergies Sulfa (Sulfonamide Antibiotics) Allergy (Unknown, Verified 05/11/25 16:12) leg rash Medication List - Last Reconciled 05/11/25 by Leonor Noe PA-C amlodipine 5 mg PO DAILY cholecalciferol (vitamin D3) (Vitamin D3) 25 mcg PO DAILY levothyroxine (Synthroid) 50 mcg PO DAILY omeprazole 20 mg PO QAM Tobacco use date assessed: 03/16/25 Dental Screening Dental Screen Date: 03/16/25 Did you have a dental visit in the last 12 months?: Yes Did you have a dental problem in the last 6 months where you did not have access to dental care?: No Was dental information given to patient?: Patient has dentist HPI HPI Comments History of Present Illness Details History of Present Illness The patient is a 75 year old individual presenting with a follow-up visit for thyroid management. The patient has been on thyroid medication for eight months and reports feeling miserable during this time. Following a previous discussion, the patient had reduced the dose to 25 mcg for six weeks. After a TSH test on May 04, another provider ordered a dose increase to 75 mcg, but the patient did not take it. Instead, the patient independently increased the dose back to 50 mcg and now intends to stop the medication in favor of an herbal supplement. The patient's blood pressure was elevated in the office, but the patient notes home readings are typically normal, suggesting possible white coat syndrome. The patient believes the elevated blood pressure and anxiety are side effects of the thyroid medication. A home reading on May 11 was 130/98 mmHg. Social History - Substance Use: The patient is planning to start taking an herbal supplement for thyroid management. [facility] Medical History (Updated 05/11/25 @ 16:18 by Leonor Noe PA-C) Anxiety Hypothyroidism Degenerative disc disease, lumbar Back pain Mild acid reflux HTN (hypertension) Arthritis Sciatic leg pain Surgical History History of thyroglossal duct cyst removal Hx of colonoscopy (~02/02/25) Family History Mother Hypertension Melanoma Social History [facility] Are you a primary foster care case manager to a significant other at home: No Do you presently have visiting nurse or other home services: No Alcohol intake: never Patient Tobacco Use Status: Never used Tobacco Second Hand Smoke Exposure: No service: No Current occupational status: retired Current occupation: right handed. Cognitive needs: No Hearing needs: No Vision needs: Yes (reading glasses) Questionnaire PHQ-9 Over the last 2 weeks, how often have you been bothered by any of the following problems? 1. Little interest or pleasure in doing things: not at all 2. Feeling down, depressed, or hopeless: not at all 3. Trouble falling or staying asleep, or sleeping too much: not at all 4. Feeling tired or having little energy: not at all 5. Poor appetite or overeating: not at all 6. Feeling bad about yourself - or that you are a failure or have let yourself or your family down: not at all 7. Trouble concentrating on things, such as reading the newspaper or watching television: not at all 8. Moving or speaking so slowly that other people could have noticed. Or the opposite - being so fidgety or restless that you have been moving around a lot more than usual: not at all 9. Thoughts that you would be better off or of hurting yourself in some way: not at all Total score: 0 Depression Screening Interpretation: Negative Depression Screening Done: Yes 27394 - PHQ-9 Billing: Yes Source: Developed by Drs. Trent Canada, Court Roberts, Marcin Soliz and colleagues, with an educational miladis from [employer]. Thrive Questionnaire Date Thrive assessed: 03/16/25 I am a: Patient What is your living situation today?: I have a steady place to live Within the past 12 months, did the food you bought not last and you didn't have the money to get more?: Never true Within the past 12 months, did you worry whether your food would run out before you got money to buy more?: Never true Do you have trouble paying for medicines?: No Do you have trouble getting transportation to medical appointments?: No Do you have trouble paying your heating and electricity bill?: No Do you have trouble taking care of your child, family member or friend?: No Do you have trouble with day-to-day activities such as bathing, preparing meals, shopping, managing finances, etc.?: No Are you currently unemployed and looking for a job?: No Are you interested in more education?: No THRIVE Score: 0 AUDIT C Alcohol Use Questionnaire (AUDIT-C) 1. How often do you have a drink containing alcohol?: Monthly or less 2. How many drinks containing alcohol do you have on a typical day when you are drinking?: 1 or 2 3. How often do you have six or more drinks on one occasion?: Never Total Score: 1 Score Reviewed/Action Taken: No HERMILO-7 AMB Questionnaire HERMILO-7 Date HERMILO - 7 assessed: 03/16/25 Source: Developed by Drs. Trent Canada, Court Roberts, Marcin Soliz and colleagues, with an educational miladis from [employer]. Review of Systems Narrative Review of Systems - Constitutional: Reports feeling unwell and miserable for the past eight months. - Psychiatric: Reports feeling very anxious, which the patient associates with thyroid medication. - All other systems: Denies swelling. Const All systems reviewed & are unremarkable except as noted in HPI and below Physical exam (Primary Care) Vital Signs: Last Vital Signs Temp 97.1 F 05/11/25 13:51 Pulse 75 05/11/25 13:51 BP 157/82 H 05/11/25 13:51 Pulse Ox 99 05/11/25 13:51 Care Plan Goal for BP management: <140/90 patient will monitor her blood pressure she will continue amlodipine 5 mg she refused to increase it to 10 mg at this time she understands the risks BMI result Body Mass Index 26.3 BMI Assessment/Plan discussion: High BMI High, discussed plan: lifestyle, weight reduction, dietary, physical activity, alcohol moderation and other Tobacco/Smoking Status: Tobacco use Status Tobacco use date assessed 03/16/25 05/11/25 13:47 Patient Tobacco Use Status Never used Tobacco 05/11/25 13:47 PHQ-9: PHQ-9 Score PHQ-9: Total score 0 05/11/25 13:58 Depression Screening Interpretation: Negative Thrive Assessment: Date of Thrive Assessment Date Thrive assessed 03/16/25 05/11/25 13:47 Narrative Physical Exam Appearance: Alert. Oriented X3. No acute distress. Head: Normal external exam. Normocephalic. Atraumatic. Eyes: Pupils are equal, round, and reactive to light. Extraocular movements intact. Conjunctiva and sclera normal. Eyelids normal. Throat: Pharynx normal. Uvula midline. Moist mucous membranes. Neck: Normal inspection. Neck supple. Full range of motion. Cardiovascular: Normal heart rate and rhythm. Heart sound normal. No murmurs noted. Pulses normal throughout. Respiratory: No respiratory distress. Painless inspiration. Breath sounds normal. No wheezes/rales/rhonchi noted. Chest nontender. No accessory muscle usage noted or decreased air movement noted. Back: Full range of motion noted. Skin: Skin warm and dry. Normal skin color. Normal skin turgor. No rashes/lesions/lacerations noted. Extremities: No lower extremity edema. Extremities exhibit normal range of motion. Neuro: Oriented X 3. No motor deficit. No sensory deficit. Reflexes normal. Office Procedures Flu Questionnaire Does the patient have a severe egg allergy?: No Does the patient have severe life threatening allergies?: No Does the patient have a fever or illness today?: No Has the patient ever had Guillain-[place] Syndrome?: No Has the patient ever had any past reaction to a flu shot?: No Immunizations Fluarix [id number] (PF) 45 mcg (15 mcg x 3)/0.5 mL IM syringe Performing Provider: Leonor Noe PA-C Performing Location: [facility] Documented (not given) by: Natalia Asif on 05/11/25 13:58 Reason Not Given: Received Previously Results Reviewed Results Reviewed: Results - Labs: A TSH level drawn on May 04 was reportedly elevated, leading another provider to recommend increasing levothyroxine. - Diagnostics: Home blood pressure reading on 05/11 was 130/98 mmHg. Coding Level of Care Code Est Pt Level 4 (80404) Complex visit Add On G2211 Diagnoses HTN (hypertension) I10 Hypothyroidism E03.9 Anxiety F41.9 Additional Codes PHQ-9 - 19676 - PHQ-9 Billing: Yes ([id number]) Assessment & Plan Assessment & Plan (1) HTN (hypertension): Code(s): I10 - Essential (primary) hypertension Category: Medical Plan: The patient's blood pressure was elevated in the office, though the patient reports normal home readings and attributes the elevation to anxiety from thyroid medication and a possible white coat effect. The patient declined an increase in amlodipine, wishing to first see if blood pressure improves after stopping the thyroid medication. We will defer medication changes and re-evaluate in a 2 to 3-month follow-up. (2) Hypothyroidism: Comment: Patient refused levothyroxine treatment Code(s): E03.9 - Hypothyroidism, unspecified Category: Medical Plan: The patient reports feeling unwell on thyroid medication for the past 8 months and declined a recent dose increase to 75 mcg prescribed by another provider. The patient has been taking 50 mcg but wishes to discontinue pharmacotherapy and begin an herbal supplement. A plan was made to stop the current medication, start the herbal remedy, and recheck TSH in 6 to 8 weeks to evaluate the efficacy of the new regimen per patient request. If her TSH is abnormal at that time patient will be restarted on pharmacotherapy. (3) Anxiety: Code(s): F41.9 - Anxiety disorder, unspecified Category: Medical Plan: The patient reports significant anxiety, which the patient believes is a side effect of the thyroid medication. No direct intervention was planned; we will monitor symptoms, with the expectation that anxiety may resolve after discontinuing the thyroid medication. Plan Plan Patient was informed and verbally consented to the use of an ambient scribe for clinic note documentation during this visit. 1. Hypothyroidism The patient reports feeling unwell on thyroid medication for the past 8 months and declined a recent dose increase to 75 mcg prescribed by another provider. The patient has been taking 50 mcg but wishes to discontinue pharmacotherapy and begin an herbal supplement. A plan was made to stop the current medication, start the herbal remedy, and recheck TSH in 6 to 8 weeks to evaluate the efficacy of the new regimen per patient request. If her TSH is abnormal at that time patient will be restarted on pharmacotherapy. The patient's blood pressure was elevated in the office, though the patient reports normal home readings and attributes the elevation to anxiety from thyroid medication and a possible white coat effect. The patient declined an increase in amlodipine, wishing to first see if blood pressure improves after stopping the thyroid medication. We will defer medication changes and re-evaluate in a 2 to 3-month follow-up. 3. Anxiety The patient reports significant anxiety, which the patient believes is a side effect of the thyroid medication. No direct intervention was planned; we will monitor symptoms, with the expectation that anxiety may resolve after discontinuing the thyroid medication. Discussion Notes I discussed the patient's ongoing symptoms and dissatisfaction with the current thyroid medication. We acknowledged the recent prescription for a 75 mcg dose from another provider, but came to a mutual agreement to try 50 mcg instead, though the patient now wishes to discontinue it entirely in favor of an herbal supplement. I advised a follow-up TSH blood test in 6-8 weeks to monitor the effects of the herbal treatment. Regarding the patient's elevated blood pressure, I acknowledged the patient's belief that it is linked to anxiety from the thyroid medication. We discussed potentially increasing the amlodipine dose but agreed to postpone this change. I recommended a follow-up visit in 2-3 months to reassess blood pressure and review lab results, instructing the patient to complete the TSH test prior to the appointment. Orders: Orders TSH reflex Free T4 Today Z00.00 - Encounter for general adult medical examination without abnormal findings Influenza [id number] Immunization Today Z23 - Encounter for immunization Patient Instructions: Patient Instructions - You will stop taking your thyroid medication (levothyroxine). - You will begin taking your herbal supplement for thyroid support. - Please have your TSH bloodwork done in 6 to 8 weeks. You do not need to fast for this test. - Schedule a follow-up appointment in 2 to 3 months to check your blood pressure and review your lab results. - Please complete your bloodwork about one week before your next visit. - If you need medication refills before your next visit, please let the office know.
[2025-05-11 13:51] VITALS: BP 157/82; PULSE 75; TEMP 36.2; O2SAT 99; BMI 26.3
[2025-05-11 16:12] VITALS: BP 130/98
== END 2025-05-11 14:34 | disposition home or self-care (01) ==
LOC: HO.HMCSH 13:45
PROVIDERS: PCP Physician Assistant Medical; Visit Provider Physician Assistant Medical
DX: I10 Essential (primary) hypertension (principal); E03.9 Hypothyroidism, unspecified; F41.9 Anxiety disorder, unspecified; Z23 Encounter for immunization

== ENCOUNTER → 2025-05-11 13:45 | Outpatient (BNVA) | payer MEDICARE, SELFPAY | PROVIDERS: PCP Internal Medicine; Visit Provider Physician Assistant Medical | DX: I10 Essential (primary) hypertension (principal); E03.9 Hypothyroidism, unspecified; F41.9 Anxiety disorder, unspecified; Z13.31 Encounter for screening for depression | CPT/HCPCS: 90471; 96127; 99212 ==

== ENCOUNTER 2025-05-27 13:43 | Outpatient (REF) | payer MEDICARE, SELFPAY ==
--- NOTE | ~2025-05-27 | US_ITS ---
EXAMINATION: US THYROID CLINICAL INFORMATION: Hypothyroidism. COMPARISON: No priors. TECHNIQUE: Linear transducer grayscale and color Doppler examination with attention to the region of the thyroid. FINDINGS: SIZE: Measurements of the thyroid lobes and nodules are given in sagittal, anteroposterior and transverse dimensions respectively. Right Thyroid Lobe: 4.3 x 1.3 x 1.3 cm, volume 3.7 mL. Parenchyma: The gland echotexture is heterogeneous. Thyroid vascularity is increased. Left Thyroid Lobe: 3.9 x 1.3 x 1.4 cm, volume 3.7 mL. Parenchyma: The gland echotexture is heterogeneous. Thyroid vascularity is increased. Isthmus: 0.3 cm in maximum AP dimension. There are no focal nodules present. NODES: No lymphadenopathy is seen in the tissue surrounding the thyroid gland. US/US thyroid IMPRESSION: 1. Heterogeneous and hypervascular thyroid gland in keeping with thyroiditis. There are no discrete nodules present. Electronically signed by: Rick Sood MD 05/27/2025 02:11 PM [facility]
--- OUTSIDE RECORDS SUMMARY | 2025-05-27 18:13 | XMS_ITS ---
Author Organization Unknown ENCOUNTERS Encounter Performer Location Date Diagnosis Diagnosis Status Outpatient [facility] [address] [place] [address] [id number] STEPHANIA Pre Admit [facility] [address] [place] [address] [id number] Outpatient [facility] [address] [place] [address] [id number] STEPHANIA Pre Admit [facility] [address] [place] [address] [id number] Outpatient [facility] [address] [place] [address] [id number] STEPHANIA Pre Admit [facility] [address] [place] [address] [id number] Outpatient [facility] [address] [place] [address] [id number] STEPHANIA Emergency [facility] [address] [place] [address] [id number] STEPHANIA *Note: Encounters from your own facility or health system may be excluded. Allergies, Adverse Reactions, Alerts Allergen Type Severity Identification Date acetaminophen drug allergy 3 [id number] Sulfa (Sulfonamide Antibiotics) drug allergy [id number] oxycodone drug allergy 3 [id number] Medications Name Date Quantity Days Supplied GPI Number
== END 2025-05-27 13:44 ==
LOC: HO.HMGCX 13:43
PROVIDERS: PCP Internal Medicine; Visit Provider Physician Assistant Medical
DX: E03.9 Hypothyroidism, unspecified (principal)
CPT/HCPCS: 76536

== ENCOUNTER → 2025-05-27 13:45 | Outpatient (BNV) | payer MEDICARE, SELFPAY | PROVIDERS: PCP Internal Medicine; Visit Provider Radiology Diagnostic Radiology | DX: E03.9 Hypothyroidism, unspecified (principal) | CPT/HCPCS: 76536 ==